=== PATIENT | male | born 1940 | race Caucasian/White ===

== ENCOUNTER 2017-12-13 12:08 | Inpatient (IN) | payer OTHER ==
[~2017-12-13] VITALS: Ht 182.9 cm; Wt 142.9 kg
[2017-12-13 12:42] LABS: BASO % 1 % (0-3); EOS # 0.2 x10^3/uL (0.0-0.7); EOS % 2 % (0-3); HEMATOCRIT 40.9 % (39.0-53.0); HEMOGLOBIN 14.1 g/dL (13.0-17.5); LYMPH # 2.1 x10^3/uL (1.0-4.8); LYMPH % 31 % (24-48); MEAN CORPUSCULAR HEMOGLOBIN 33 pg (25-35); MEAN CORPUSCULAR HGB CONC 35 g/dL (31-37); MEAN CORPUSCULAR VOLUME 94 fL (79-100); MONO # 0.8 x10^3/uL (0.0-1.1); MONO % 11 % (0-9); NEUT # 3.7 x10^3uL (1.8-7.7); NEUT % 54 % (31-73); PLATELET COUNT 212 x10^3/uL (140-400); RED BLOOD COUNT 4.33 x10^6/uL (4.30-5.70); WHITE BLOOD COUNT 6.9 x10^3/uL (4.0-11.0)
--- NOTE | 2017-12-13 12:46 | RAD ---
EXAM: Chest, 2 views. HISTORY: Shortness of breath. COMPARISON: None. FINDINGS: 2 views of the chest are obtained. There is no infiltrate, pleural effusion or pneumothorax. There is a prominent cardiac silhouette. There is evidence of prior median sternotomy. IMPRESSION: No acute pulmonary finding. Electronically signed by: Viry Zuniga MD (12/13/2017 12:43 PM) [place] [id number]
[2017-12-13 13:02] LABS: ALBUMIN 3.8 g/dL (3.4-5.0); CREATININE 1.1 mg/dL (0.7-1.3); GFR 64.6; MAGNESIUM 2.3 mg/dL (1.8-2.4); TOTAL BILIRUBIN 0.6 mg/dL (0.2-1.0); TOTAL PROTEIN 7.7 g/dL (6.4-8.2)
--- NOTE | 2017-12-13 13:36 | RAD ---
EXAM: Right lower extremity venous Doppler sonogram. HISTORY: Pain and swelling. TECHNIQUE: Nascimento scale and color Doppler sonographic evaluation of the right lower extremity veins with spectral waveform analysis was performed. FINDINGS: There is normal color flow, normal compressibility and there are normal spectral waveforms in the right lower extremity veins. There is no fluid collection underlying a wound along the anterior feliz. There is soft tissue edema. IMPRESSION: No Doppler evidence of lower extremity venous thrombosis. Electronically signed by: Viry Zuniga MD (12/13/2017 1:32 PM) [place] [id number]
[2017-12-13] MEDS ORDERED: dilTIAZem 25 MG/5 ML VIAL IVP ONE (13:45)
[2017-12-13 13:51] LABS: AMPHETAMINE/METHAMPHETAMINE NEG (NEG); BARBITURATES NEG (NEG); BENZODIAZEPINES NEG (NEG); CANNABINOIDS NEG (NEG); COCAINE NEG (NEG); METHADONE NEG (NEG); OPIATES NEG (NEG); PHENCYCLIDINE NEG (NEG)
[2017-12-13] MEDS ORDERED: IV NORMAL SALINE 50ML 50 ML ONE (13:52)
[2017-12-13] MEDS ORDERED: ceFAZolin SODIUM 1 GM VIAL ONE (13:53)
--- NOTE | 2017-12-13 14:00 | EKG ---
[address] [address] Test Date: 2017-12-13 Test Time: 12:23:00 Pat Name: ALLEN CRAWFORD Department: Room: Gender: M Registration Specialist: : 1940 Requested By: NESHA GONSALES Order Number: [id number] Reading MD: Cisco Ponce MD Measurements Intervals [place] Rate: 64 P: [place]: QRS: -54 QRSD: 138 T: 31 QT: 430 QTc: 448 Interpretive Statements PROBABLE ATRIAL FIBRILLATION WITH CONTROLLED RESPONSE. OLD INFERIOR INFARCT POSSIBLE RBBB PVC Electronically Signed On 12-13-2017 16:29:33 CDT by Cisco Ponce MD
--- NOTE | 2017-12-13 14:08 | PHYS DOC ---
Past History Past Medical History: A-Fib, CHF, COPD, Hypertension Past Surgical History: Coronary Bypass Surgery Alcohol Use: None Drug Use: None Adult General Chief Complaint Chief Complaint: SHORTNESS OF BREATH HPI HPI Patient is a 77 year old male who presents with complaining of shortness of breath. Patient was seen by his primary care physician today for the first time with complaining of increasing chronic shortness of breath for the last month with exertion and supine position and bilateral lower extremity edema. Patient complaining of right lower extremity injury and increasing edema and an ulcer that does not getting better for the last 2 weeks. Patient also states he had one episode of chest pain 2 days ago that resolved with taking nitroglycerin. Patient complaining of productive cough with clear sputum and nasal congestion for several days. Patient denies dizziness, focal neuro deficit, fever and chills, nausea and vomiting. Patient has history of CHF, coronary artery disease and CABG in 1998 and cardiac catheter 2 years ago, insulin-dependent diabetes mellitus and former smoking. Patient was incarcerated for 20 years and is in retirement house for the last 2 -3 weeks. Patient had EKG by primary care physician office that showed new onset of atrial fibrillation without RVR. Review of Systems Review of Systems Constitutional: Denies fever or chills [] Eyes: Denies change in visual acuity, redness, or eye pain [] HENT: Reports nasal congestion Respiratory: Reports cough and shortness of breath[] Cardiovascular: No additional information not addressed in HPI [] GI: Denies abdominal pain, nausea, vomiting, bloody stools or diarrhea [] : Denies dysuria or hematuria [] Musculoskeletal: Denies back pain or joint pain [] Integument: Denies rash or skin lesions [] Neurologic: Denies headache, focal weakness or sensory changes [] Endocrine: Denies polyuria or polydipsia [] All other systems were reviewed and found to be within normal limits, except as documented in this note. Current Medications Current Medications Current Medications Medications (Trade) Dose Ordered Sig/Jada Start Time Stop Time Status Last Admin Dose Admin Cefazolin Sodium 1 gm/Sodium Chloride 50 ml @ 100 mls/hr 1X ONCE 12/13/17 13:45 12/13/17 14:14 UNV Diltiazem HCl (Cardizem) 20 mg 1X ONCE 12/13/17 13:45 12/13/17 13:46 12/13/17 13:41 20 MG Furosemide (Lasix) 40 mg 1X ONCE 12/13/17 13:45 12/13/17 13:46 UNV Allergies Allergies Allergies Coded Allergies Type Severity Reaction Last Updated Verified Penicillins Allergy Intermediate 12/13/17 Yes Physical Exam Physical Exam Constitutional: Well developed, well nourished, mild distress, non-toxic appearance. [] HENT: Normocephalic, atraumatic, bilateral external ears normal, oropharynx moist, no oral exudates, nose normal. [] Eyes: PERRLA, EOMI, conjunctiva normal, no discharge. [] Neck: Normal range of motion, no tenderness, supple, no stridor. [] Cardiovascular: Irregularly irregular, no murmur [] Lungs & Thorax: No respiratory distress, bilateral basilar rhonchi and decrease of air movement [] Abdomen: Bowel sounds normal, soft, no tenderness, no masses, no pulsatile masses. [] Skin: Warm, dry, no erythema, no rash. [] Back: No tenderness, no CVA tenderness. [] Extremities: Bilateral lower extremity edema more in right side with 2 x 2 centimeter ulcer in anterior right leg and erythema without sign of abscess Neurologic: Alert and oriented X 3, normal motor function, normal sensory function, no focal deficits noted. [] Psychologic: Affect normal, judgement normal, mood normal. [] Current Patient Data Vital Signs Vital Signs Date Time Temp Pulse Resp B/P (MAP) Pulse Ox O2 Delivery O2 Flow Rate FiO2 12/13/17 13:41 70 158/114 12/13/17 12:29 97.7 20 100 Room Air Lab Results Laboratory Tests Test 12/13/17 12:26 White Blood Count 6.9 x10^3/uL (4.0-11.0) Red Blood Count 4.33 x10^6/uL (4.30-5.70) Hemoglobin 14.1 g/dL (13.0-17.5) Hematocrit 40.9 % (39.0-53.0) Mean Corpuscular Volume 94 fL (79-100) Mean Corpuscular Hemoglobin 33 pg (25-35) Mean Corpuscular Hemoglobin Concent 35 g/dL (31-37) Red Cell Distribution Width 13.0 % (11.5-14.5) Platelet Count 212 x10^3/uL (140-400) Neutrophils (%) (Auto) 54 % (31-73) Lymphocytes (%) (Auto) 31 % (24-48) Monocytes (%) (Auto) 11 % (0-9) H Eosinophils (%) (Auto) 2 % (0-3) Basophils (%) (Auto) 1 % (0-3) Neutrophils # (Auto) 3.7 x10^3uL (1.8-7.7) Lymphocytes # (Auto) 2.1 x10^3/uL (1.0-4.8) Monocytes # (Auto) 0.8 x10^3/uL (0.0-1.1) Eosinophils # (Auto) 0.2 x10^3/uL (0.0-0.7) Basophils # (Auto) 0.0 x10^3/uL (0.0-0.2) Prothrombin Time 11.3 SEC (9.4-11.4) Prothrombin Time INR 1.1 (0.9-1.1) PTT 24 SEC (23-33) D-Dimer (Paula) 0.59 mg/L (0.00-0.50) H Sodium Level 141 mmol/L (136-145) Potassium Level 4.0 mmol/L (3.5-5.1) Chloride Level 102 mmol/L (98-107) Carbon Dioxide Level 32 mmol/L (21-32) Anion Gap 7 (6-14) Blood Urea Nitrogen 22 mg/dL (8-26) Creatinine 1.1 mg/dL (0.7-1.3) Estimated GFR (Cockcroft-Gault) 64.6 BUN/Creatinine Ratio 20 (6-20) Glucose Level 89 mg/dL (70-99) Calcium Level 9.0 mg/dL (8.5-10.1) Magnesium Level 2.3 mg/dL (1.8-2.4) Total Bilirubin 0.6 mg/dL (0.2-1.0) Aspartate Amino Transferase (AST) 16 U/L (15-37) Alanine Aminotransferase (ALT) 23 U/L (16-63) Alkaline Phosphatase 74 U/L (46-116) Creatine Kinase 140 U/L (39-308) Troponin I Quantitative < 0.017 ng/mL (0-0.055) AE-Vqt-Y-Type Natriuretic Peptide 1311 pg/mL (0-449) H Total Protein 7.7 g/dL (6.4-8.2) Albumin 3.8 g/dL (3.4-5.0) Albumin/Globulin Ratio 1.0 (1.0-1.7) Lipase 357 U/L (73-393) EKG EKG EKG interpreted by me. EKG at 1229 showed atrial fibrillation at rate of 64 with frequent PVC, abnormal left axis deviation, left anterior fascicular block , right bundle branch block, bifascicular block, no acute ST and T-wave abnormalities[] Radiology/Procedures Radiology/Procedures [address] [address] IMAGING REPORT Signed PATIENT: ALLEN CRAWFORD ACCOUNT: [id number] : 1940 LOCATION: ER AGE: 77 SEX: M EXAM STATUS: REG ER ORD. PHYSICIAN: NESHA GONSALES MD REASON: edema and injury PROCEDURE: VENOUS LOWER EXTREMITY RIGHT EXAM: Right lower extremity venous Doppler sonogram. HISTORY: Pain and swelling. TECHNIQUE: Nascimento scale and color Doppler sonographic evaluation of the right lower extremity veins with spectral waveform analysis was performed. FINDINGS: There is normal color flow, normal compressibility and there are normal spectral waveforms in the right lower extremity veins. There is no fluid collection underlying a wound along the anterior feliz. There is soft tissue edema. IMPRESSION: No Doppler evidence of lower extremity venous thrombosis. Electronically signed by: Viry Welch MD (12/13/2017 1:32 PM) [place] [id number] DICTATED AND SIGNED BY: VIRY WELCH MD DATE: 12/13/17 1333 CC: NESHA GONSALES MD; CHLOE ESPINOZA DO ~ [address] [address] IMAGING REPORT Signed PATIENT: ALLEN CRAWFORD ACCOUNT: [id number] : 1940 LOCATION: ER AGE: 77 SEX: M EXAM STATUS: REG ER ORD. PHYSICIAN: NESHA GONSALES MD REASON: shortness of breath PROCEDURE: CHEST PA & LATERAL EXAM: Chest, 2 views. HISTORY: Shortness of breath. COMPARISON: None. FINDINGS: 2 views of the chest are obtained. There is no infiltrate, pleural effusion or pneumothorax. There is a prominent cardiac silhouette. There is evidence of prior median sternotomy. IMPRESSION: No acute pulmonary finding. Electronically signed by: Viry Welch MD (12/13/2017 12:43 PM) [place] [id number] DICTATED AND SIGNED BY: VIRY WELCH MD DATE: 12/13/17 1242 CC: NESHA GONSALES MD; CHLOE ESPINOZA DO ~ Course & Med Decision Making Course & Med Decision Making Pertinent Labs and Imaging studies reviewed. (See chart for details) Evaluation of patient in ER showed 77-year-old male patient sent from primary care physician office because of new onset of A. fib and lower extremity cellulitis and CHF. Patient did not have DVT. Labs showed elevation of BNP with unremarkable chest x-ray and EKG showed atrial fibrillation without RVR. She treated with 20 mg of Cardizem with drop of heart rate to 45s without change of atrial fibrillation. Patient had treatment with Ancef and Lasix and on-call hospitalist Dr. Cohn accepted admission at 1338. Dragon Disclaimer Dragon Disclaimer This electronic medical record was generated, in whole or in part, using a voice recognition dictation system. Departure Departure: Impression: Primary Impression: New onset atrial fibrillation Additional Impressions: Cellulitis of right lower extremity CHF (congestive heart failure) Diabetes mellitus Morbid obesity Disposition: 09 ADMITTED INPATIENT (@1340) Admitting Physician: Radha Cohn (accepted admission at 1338) Condition: IMPROVED Referrals: CHLOE ESPINOZA DO (PCP) Problem Qualifiers NESHA GONSALES MD Dec 13, 2017 14:08
[2017-12-13] MEDS ORDERED: FUROSEMIDE 40 MG/4 ML VIAL IVP ONE (14:15)
[2017-12-13 14:48] VITALS: BP 156/71
[2017-12-13] MEDS ORDERED: FURO40TA4 PO (15:57)
[2017-12-13] MEDS ORDERED: LISI40TA PO (15:57)
[2017-12-13] MEDS ORDERED: INSU100V31 SQ (15:57)
[2017-12-13] MEDS ORDERED: ASPI-630 PO (15:57)
[2017-12-13] MEDS ORDERED: RANI150T2 PO (15:57)
[2017-12-13] MEDS ORDERED: ATORVASTATIN CA80 MG PO (15:57)
[2017-12-13] MEDS ORDERED: MECL25TA3 PO (15:57)
[2017-12-13] MEDS ORDERED: METO50TA6 PO (15:57)
[2017-12-13] MEDS ORDERED: NEOM10DR32 EACH EAR (15:57)
[2017-12-13] MEDS ORDERED: ACET325T9 PO (15:57)
[2017-12-13] MEDS ORDERED: NITR0.4T22 SL (15:57)
[2017-12-13] MEDS ORDERED: ISOS30TA4 PO (15:57)
[2017-12-13] MEDS ORDERED: DOCU100C28 PO (15:57)
[2017-12-13] MEDS ORDERED: CARB15DR58 OT (15:57)
[2017-12-13] MEDS ORDERED: INSU100I13 SQ (15:57)
[2017-12-13] MEDS ORDERED: CALC-157 PO (15:57)
[2017-12-13] MEDS ORDERED: MOME13HF IH (15:57)
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
[2017-12-13] MEDS ORDERED: MECLIZINE 12.5 MG TABLET. PO PRN (18:30)
[2017-12-13] MEDS ORDERED: NITROGLYCERIN SUBLINGUAL 0.4 MG BOTTLE OF 25. SL PRN (18:30)
[2017-12-13 18:47] VITALS: BP 161/75
[2017-12-13] MEDS: VANCOMYCIN PER PHARMACY MC PRN (19:13)
[2017-12-13] MEDS ORDERED: NON FORMULARY ITEM (Mometasone/Formoterol (Dulera 200 Mcg/5 Mcg Inhaler) 2 PUFF) IH SCH (21:00)
[2017-12-13] MEDS: ALBUTEROL SULFATE 2.5 MG/3 ML NEBU. NEB SCH (21:11)
[2017-12-13] MEDS: BUDESONIDE 0.5 MG/2 ML NEBU NEB SCH (21:11)
[2017-12-13] MEDS: VANCOMYCIN 2 GM in IV NORMAL SALINE 500ML 500 ML IV SCH (21:36)
[2017-12-13] MEDS: CARBAMIDE PEROXIDE 6.5% OTIC SOLUTION 15ML BOTTLE. AU SCH (21:36)
[2017-12-13] MEDS: APIXABAN 5 MG TABLET. PO SCH (21:37)
[2017-12-13] MEDS: NEOMYCIN/POLYMYXIN/HC OTIC SUSPENSION 10ML BOTTLE. AU SCH (21:37)
[2017-12-13] MEDS: FAMOTIDINE 20 MG TABLET PO SCH (21:38)
[2017-12-13] MEDS: DOCUSATE SODIUM 100 MG CAPSULE PO SCH (21:39)
[2017-12-13 23:03] VITALS: BP 164/75
[2017-12-14 04:17] VITALS: BP 161/78
[2017-12-14] MEDS: ACETAMINOPHEN 325 MG TABLET PO PRN ×2 (04:39→20:10)
[2017-12-14] MEDS: ALBUTEROL SULFATE 2.5 MG/3 ML NEBU. NEB SCH ×4 (05:36→21:04)
[2017-12-14 06:06] LABS: CALCIUM 8.9 mg/dL (8.5-10.1); CREATININE 1.2 mg/dL (0.7-1.3); GFR 58.4; POTASSIUM 4.1 mmol/L (3.5-5.1)
--- NOTE | 2017-12-14 06:19 | PDOC ---
PROVIDER NOTE PROVIDER NOTE PROVIDER NOTE Full note dictated. 77 y.o male with mild diastolic HF. New onset afib start eliquis. rate controlled will have sw evaluate insurance status. patient moving to [place] probably in 1-2 weeks obtain echo DARRYN TOLEDO MD Dec 14, 2017 06:19
[2017-12-14] MEDS: CALCIUM CARB/VIT D3 500/200 TABLET PO SCH (08:38)
[2017-12-14] MEDS: LISINOPRIL 20 MG TABLET PO SCH (08:38)
[2017-12-14] MEDS: VANCOMYCIN 2 GM in IV NORMAL SALINE 500ML 500 ML IV SCH ×2 (08:38→19:56)
[2017-12-14] MEDS: ATORVASTATIN CALCIUM 20 MG TABLET PO SCH (08:38)
[2017-12-14] MEDS: APIXABAN 5 MG TABLET. PO SCH ×2 (08:42→21:25)
[2017-12-14] MEDS: DOCUSATE SODIUM 100 MG CAPSULE PO SCH ×2 (08:42→21:24)
[2017-12-14] MEDS: ASPIRIN 81 MG TAB.CHEW PO SCH (08:42)
[2017-12-14] MEDS: FAMOTIDINE 20 MG TABLET PO SCH ×2 (08:43→21:25)
[2017-12-14] MEDS: CETIRIZINE HCL 10 MG TABLET PO SCH (08:43)
[2017-12-14] MEDS: NEOMYCIN/POLYMYXIN/HC OTIC SUSPENSION 10ML BOTTLE. AU SCH ×3 (08:43→21:26)
[2017-12-14] MEDS: FLUTICASONE 50MCG/NASAL SPRAY 16GM BOTTLE. NS SCH (08:47)
[2017-12-14] MEDS: FUROSEMIDE 40 MG TABLET PO SCH (08:47)
[2017-12-14] MEDS: CARBAMIDE PEROXIDE 6.5% OTIC SOLUTION 15ML BOTTLE. AU SCH ×2 (08:48→21:26)
[2017-12-14] MEDS: ISOSORBIDE MONONITRATE ER 30 MG TAB.ER.24H PO SCH (08:53)
[2017-12-14] MEDS: INSULIN LISPRO 300 UNITS/3 ML INSULN.PEN. SQ SCH (09:00)
[2017-12-14] MEDS: INSULIN GLARGINE 300 UNITS/3 ML INSULN.PEN. SQ SCH (09:00)
[2017-12-14] MEDS: LACTOBACILLUS RHAMNOSUS GG 1 CAPSULE. PO SCH ×2 (09:00→21:25)
[2017-12-14] MEDS: BUDESONIDE 0.5 MG/2 ML NEBU NEB SCH ×2 (09:29→21:04)
--- NOTE | 2017-12-14 10:06 | PDOC ---
PROGRESS NOTES Diagnosis Problem Problems Medical Problems: (1) Cellulitis of right lower extremity Status: Acute (2) CHF (congestive heart failure) Status: Acute (3) Diabetes mellitus Status: Acute (4) Morbid obesity Status: Acute (5) New onset atrial fibrillation Status: Acute Assessment Problems Medical Problems: (1) Cellulitis of right lower extremity Status: Acute (2) CHF (congestive heart failure) Status: Acute (3) Diabetes mellitus Status: Acute (4) Morbid obesity Status: Acute (5) New onset atrial fibrillation Status: Acute 1. Chest pain - UT ruled out. echo pending. review most recent cath report. could consider outpatient MPI pending record review. Continue aspirin, statin, nitrate. No beta marisa due to borderline bradycardia. 2. mild presumed chronic diastolic heart failure - clinically compensated currently. CXR without pulmonary congestion. continue medical mgmt. 3. new onset atrial fibrillation - on anticoag, rate controlled without BB or CCB 4. CAD/CABG status - request records of cardiac cath within last 2 years 5. hypertension - add hydralazine 6. hyperlipidemia - check lipids, continue statin Subjective feeling better. no dyspnea, chest pain, palpitations or lightheadedness. Objective Vital Signs Date Time Temp Pulse Resp B/P (MAP) Pulse Ox O2 Delivery O2 Flow Rate FiO2 12/14/17 09:30 95 Room Air 12/14/17 08:53 62 161/78 12/14/17 04:17 97.7 20 Intake and Output 12/14/17 07:00 Intake Total 1500 ml Output Total 825 ml Balance 675 ml Intake Oral 1000 ml IV Total 500 ml Output Urine Total 825 ml # Voids 1 Abdomen: Normal bowel sounds, Soft Heart: Normal S1, Normal S2, Other (no gallops, clicks or rubs) Extremities: Other (+ bilateral lower extremity edema) General: Alert, Oriented X3, Cooperative, No acute distress Lungs: Other (decreased bases otherwise clear) Neuro: Normal speech, Strength at 5/5 X4 ext Psych/Mental Status: Mental status NL, Mood NL Review of Relevant I have reviewed the following items catalina (where applicable) has been applied. Labs Laboratory Tests Test 12/13/17 12:26 12/13/17 13:33 12/13/17 16:22 12/13/17 17:07 White Blood Count 6.9 x10^3/uL (4.0-11.0) Red Blood Count 4.33 x10^6/uL (4.30-5.70) Hemoglobin 14.1 g/dL (13.0-17.5) Hematocrit 40.9 % (39.0-53.0) Mean Corpuscular Volume 94 fL (79-100) Mean Corpuscular Hemoglobin 33 pg (25-35) Mean Corpuscular Hemoglobin Concent 35 g/dL (31-37) Red Cell Distribution Width 13.0 % (11.5-14.5) Platelet Count 212 x10^3/uL (140-400) Neutrophils (%) (Auto) 54 % (31-73) Lymphocytes (%) (Auto) 31 % (24-48) Monocytes (%) (Auto) 11 % (0-9) Eosinophils (%) (Auto) 2 % (0-3) Basophils (%) (Auto) 1 % (0-3) Neutrophils # (Auto) 3.7 x10^3uL (1.8-7.7) Lymphocytes # (Auto) 2.1 x10^3/uL (1.0-4.8) Monocytes # (Auto) 0.8 x10^3/uL (0.0-1.1) Eosinophils # (Auto) 0.2 x10^3/uL (0.0-0.7) Basophils # (Auto) 0.0 x10^3/uL (0.0-0.2) Prothrombin Time 11.3 SEC (9.4-11.4) Prothromb Time International Ratio 1.1 (0.9-1.1) Activated Partial Thromboplast Time 24 SEC (23-33) D-Dimer (Paula) 0.59 mg/L (0.00-0.50) Sodium Level 141 mmol/L (136-145) Potassium Level 4.0 mmol/L (3.5-5.1) Chloride Level 102 mmol/L (98-107) Carbon Dioxide Level 32 mmol/L (21-32) Anion Gap 7 (6-14) Blood Urea Nitrogen 22 mg/dL (8-26) Creatinine 1.1 mg/dL (0.7-1.3) Estimated GFR (Cockcroft-Gault) 64.6 BUN/Creatinine Ratio 20 (6-20) Glucose Level 89 mg/dL (70-99) Calcium Level 9.0 mg/dL (8.5-10.1) Magnesium Level 2.3 mg/dL (1.8-2.4) Total Bilirubin 0.6 mg/dL (0.2-1.0) Aspartate Amino Transf (AST/SGOT) 16 U/L (15-37) Alanine Aminotransferase (ALT/SGPT) 23 U/L (16-63) Alkaline Phosphatase 74 U/L (46-116) Creatine Kinase 140 U/L (39-308) Troponin I Quantitative < 0.017 ng/mL (0-0.055) < 0.017 ng/mL (0-0.055) MV-Dmw-V-Type Natriuretic Peptide 1311 pg/mL (0-449) Total Protein 7.7 g/dL (6.4-8.2) Albumin 3.8 g/dL (3.4-5.0) Albumin/Globulin Ratio 1.0 (1.0-1.7) Lipase 357 U/L (73-393) Urine Opiates Screen Neg (NEG) Urine Methadone Screen Neg (NEG) Urine Barbiturates Neg (NEG) Urine Phencyclidine Screen Neg (NEG) Urine Amphetamine/Methamphetamine Neg (NEG) Urine Benzodiazepines Screen Neg (NEG) Urine Cocaine Screen Neg (NEG) Urine Cannabinoids Screen Neg (NEG) Urine Ethyl Alcohol Neg (NEG) Glucose (Fingerstick) 116 mg/dL (70-99) Test 12/13/17 20:23 12/13/17 20:54 12/14/17 05:31 12/14/17 07:17 Glucose (Fingerstick) 153 mg/dL (70-99) 169 mg/dL (70-99) Troponin I Quantitative < 0.017 ng/mL (0-0.055) Sodium Level 137 mmol/L (136-145) Potassium Level 4.1 mmol/L (3.5-5.1) Chloride Level 99 mmol/L (98-107) Carbon Dioxide Level 28 mmol/L (21-32) Anion Gap 10 (6-14) Blood Urea Nitrogen 20 mg/dL (8-26) Creatinine 1.2 mg/dL (0.7-1.3) Estimated GFR (Cockcroft-Gault) 58.4 Glucose Level 173 mg/dL (70-99) Calcium Level 8.9 mg/dL (8.5-10.1) Medications Current Medications Diltiazem HCl (Cardizem) 20 mg 1X ONCE IVP Last administered on 12/13/17at 13: 41; Start 12/13/17 at 13:45; Stop 12/13/17 at 13:46; Status DC Cefazolin Sodium 1 gm/Sodium Chloride 50 ml @ 100 mls/hr 1X ONCE IV Last administered on 12/13/17at 13:56; Start 12/13/17 at 14:15; Stop 12/13/17 at 14 :44; Status DC Furosemide (Lasix) 40 mg 1X ONCE IVP Last administered on 12/13/17at 13:56; Start 12/13/17 at 14:15; Stop 12/13/17 at 14:16; Status DC Sodium Chloride 50 ml @ As Directed STK-MED ONCE .ROUTE ; Start 12/13/17 at 13: 52; Stop 12/13/17 at 13:53; Status DC Cefazolin Sodium (Ancef) 1 gm STK-MED ONCE .ROUTE ; Start 12/13/17 at 13:53; Stop 12/13/17 at 13:54; Status DC Cetirizine HCl (ZyrTEC) 10 mg DAILY PO Last administered on 12/14/17at 08:43; Start 12/14/17 at 09:00 Fluticasone Propionate (Flonase) 2 spray DAILY NS Last administered on at 08:47; Start 12/14/17 at 09:00 Influenza Virus Vaccine (Afluria Trivalent [id number] Syringe) 0.5 ml ONCE ONCE VAX IM Last administered on 12/14/17at 08:56; Start 12/14/17 at 09:00; Stop 12/14/17 at 09:01; Status DC Apixaban (Eliquis) 5 mg BID PO Last administered on 12/14/17 08:42; Start at 21:00 Acetaminophen (Tylenol) 650 mg PRN QID PRN PO PAIN Last administered on at 04:39; Start 12/13/17 at 18:15 Calcium/Vitamin D (Oscal D 500mg/ 200uts) 1 tab DAILY PO Last administered on 12/14/17at 08:38; Start 12/14/17 at 09:00 Insulin Glargine (Lantus) 15 units DAILY SQ Last administered on 12/14/17at 09: 00; Start 12/14/17 at 09:00 Isosorbide Mononitrate (Imdur) 30 mg DAILY PO Last administered on 12/14/17at 08:53; Start 12/14/17 at 09:00 Nitroglycerin (Nitrostat) 0.4 mg PRN Q5MIN PRN SL CHEST PAIN; Start 12/13/17 at 18:30 Aspirin (Children'S Aspirin) 81 mg DAILYWBKFT PO Last administered on 08:42; Start 12/14/17 at 08:00 Atorvastatin Calcium (Lipitor) 80 mg DAILY PO Last administered on 12/14/17 08:38; Start 12/14/17 at 09:00 Docusate Sodium (Colace) 100 mg BID PO Last administered on 12/14/17 08:42; Start 12/13/17 at 21:00 Furosemide (Lasix) 40 mg DAILY PO Last administered on 12/14/17 08:47; Start 12/14/17 at 09:00 Insulin Human Lispro (HumaLOG) 5 units DAILYWBKFT SQ Last administered on 12/14 09:00; Start 12/14/17 at 08:00 Lisinopril (Prinivil) 40 mg DAILY PO Last administered on 12/14/17 08:38; Start 12/14/17 at 09:00 Meclizine HCl (Antivert) 25 mg PRN BID PRN PO DIZZINESS; Start 12/13/17 at 18: 30 Non-Formulary Medication (Mometasone/ Formoterol (Dulera 200 Mcg/5 Mcg Inhaler) ) 2 puff BID IH ; Start 12/13/17 at 21:00; Status UNV Neomycin/ Polymyxin/ Hydrocortisone (Cortisporin Otic) 4 drop TID AU Last administered on 12/14/17 08:43; Start 12/13/17 at 21:00 Famotidine (Pepcid) 20 mg BID PO Last administered on 12/14/17 08:43; Start 12/13/17 at 21:00 Carbamide Peroxide (Debrox) 5 drop BID AU Last administered on 12/14/17 08:48 ; Start 12/13/17 at 21:00 Vancomycin HCl (Vanco Per Pharmacy) 1 each PRN DAILY PRN MC SEE COMMENTS Last administered on 12/13/17at 19:13; Start 12/13/17 at 18:15 Albuterol Sulfate (Ventolin) 2.5 mg RTQID NEB Last administered on 12/14/17at 09:29; Start 12/13/17 at 20:00 Budesonide (Pulmicort) 0.5 mg RTBID NEB Last administered on 12/14/17at 09:29; Start 12/13/17 at 20:00 Vancomycin HCl 2 gm/Sodium Chloride 500 ml @ 250 mls/hr Q12H IV Last administered on 12/14/17at 08:38; Start 12/13/17 at 20:00 Vancomycin HCl (Vancomycin Trough Level) 1 each 1X ONCE MC ; Start 12/15/17 at 07:30; Stop 12/15/17 at 07:31 Lactobacillus Rhamnosus (Culturelle) 1 cap BID PO ; Start 12/14/17 at 09:00 Active Scripts Active Reported Novolog (Insulin Aspart) 100 Unit/1 Ml Vial 5 Unit SQ DAILY Lantus Solostar (Insulin Glargine,Hum.rec.anlog) 100 Unit/1 Ml Insuln.pen 15 Unit SQ DAILY Ranitidine Hcl 150 Mg Tablet 1 Tab PO BID NITROGLYCERIN SubLingual (Nitroglycerin) 0.4 Mg Tab.subl 1 Tab SL UD Aatwmpou-Guocxashw-Hg Ear Susp (Neomycin/Polymyxin B Sulf/Hc) 10 Ml Drops.susp 4 Drop EACH EAR TID Dulera 200 Mcg/5 Mcg Inhaler (Mometasone/Formoterol) 13 Gm Hfa.aer.ad 2 Puff IH BID Metoprolol Tartrate 50 Mg Tablet 1 Tab PO BID Meclizine Hcl 25 Mg Tablet 25 Mg PO BID PRN Lisinopril 40 Mg Tablet 1 Tab PO DAILY Isosorbide Mononitrate Er (Isosorbide Mononitrate) 30 Mg Tab.er.24h 1 Tab PO DAILY Furosemide 40 Mg Tablet 1 Tab PO DAILY Docusate Sodium 100 Mg Capsule 1 Cap PO BID Carbamide Peroxide 15 Ml Drops 15 Ml OT Calcium 500 + Vit D 200 Tablet (Calcium Carbonate/Vitamin D3) 1 Each Tablet 1 Each PO DAILY Atorvastatin Calcium 80 Mg Tablet 1 Tab PO DAILY Aspirin 81 Mg Tab.chew 81 Mg PO DAILY Tylenol (Acetaminophen) 325 Mg Tablet 1-2 Tab PO QID Vitals/I & O Vital Sign - Last 24 Hours 12/13/17 12/13/17 12/13/17 12/13/17 12:29 13:41 13:44 14:19 Temp 97.7 Pulse 70 70 67 50 Resp 20 20 20 B/P (MAP) 158/114 158/114 (129) 143/57 (85) Pulse Ox 100 100 95 O2 Delivery Room Air Room Air Room Air 12/13/17 12/13/17 12/13/17 12/13/17 14:48 18:47 20:00 21:12 Temp 97.3 97.8 Pulse 53 62 Resp 22 20 B/P (MAP) 156/71 (99) 161/75 (103) Pulse Ox 96 95 95 O2 Delivery Room Air Room Air Room Air Room Air 12/13/17 12/13/17 12/14/17 12/14/17 21:16 23:03 04:17 05:36 Temp 98.1 97.7 Pulse 75 62 Resp 20 20 B/P (MAP) 164/75 (104) 161/78 (105) Pulse Ox 95 95 94 95 O2 Delivery Room Air Room Air Room Air Room Air 12/14/17 12/14/17 12/14/17 12/14/17 08:30 08:38 08:53 09:30 Pulse 62 62 B/P (MAP) 161/78 161/78 Pulse Ox 95 O2 Delivery Room Air Room Air Intake and Output 12/13/17 12/13/17 12/14/17 15:00 23:00 07:00 Intake Total 400 ml 1100 ml Output Total 200 ml 625 ml Balance 200 ml 475 ml ARNIE CHAPMAN APRN Dec 14, 2017 10:06
[2017-12-14 11:16] VITALS: BP 121/69
--- NOTE | 2017-12-14 12:41 | CONS ---
DATE OF CONSULTATION: 12/13/2017 REASON FOR CONSULTATION: Heart failure. HISTORY OF PRESENT ILLNESS: The patient is a 77-year-old male who presented to the ER with chest pain that started 3 weeks ago. He was moved from [facility] to a [facility] house, has been feeling worse since then. States he has been taking his medication, has not been staying with his diet during that time. Over this time, he has felt this kind of increasing pressure, has had paroxysmal nocturnal dyspnea, has had dyspnea on exertion, has had wheezing, has had increased swelling during this time as well. Other review of systems is negative. MEDICATIONS: See MAR PAST MEDICAL HISTORY: Hypertension, insulin-dependent diabetes mellitus, hyperlipidemia. PAST SURGICAL HISTORY: He has had a quadruple bypass in 1998, had a PCI in 2007. He has had 2 decompensated heart failure since 2007. FAMILY HISTORY: Mother of myocardial infarction. Brother and sister have also had heart issues. PHYSICAL EXAMINATION: VITAL SIGNS: Blood pressure has been in the 140s and 150s, heart rate was in the 60s, which then went to the 40s-50s after receiving carvedilol in the Emergency Room. CARDIOVASCULAR: Irregularly irregular heart rate. RESPIRATORY: Has had wheezing on lung exam. EXTREMITIES: +2 lower extremity edema. Has an area of erythema on the right lower extremity. GENERAL: Morbidly obese male sitting upright in bed with no acute distress. LABORATORY DATA: CBC normal. CMP normal. EKG, old inferior infarct, atrial fibrillation, PVCs, right bundle-branch block. ASSESSMENT: 1. Acute decompensated heart failure secondary to diet noncompliance. Begin Lasix 40 mg IV, reassess CMP, fluid status tomorrow. We will need to optimize his heart failure medications. 2. Atrial fibrillation. We will begin blood thinner with Eliquis or Xarelto depending on what his insurance will cover. DARRYN TOLEDO MD DR: CINTHYA/negrita JOB#: [id number] / [id number] MTDD
[2017-12-14 15:41] VITALS: BP 143/72
--- NOTE | 2017-12-14 16:29 | CARD ---
MR#: [id number] Date of Study: 12/14/2017 Ordering Physician: DARRYN TOLEDO, Referring Physician: OLY TAMEZ, Tech: Bella Demarco APPROVED REPORT EXAM: Two-dimensional and M-mode echocardiogram with Doppler and color Doppler. Other Information Quality : FairHR: 73bpm Rhythm : PVC's INDICATION Chest Pain RISK FACTORS Hypertension Hyperlipidemia Diabetes 2D DIMENSIONS Left Atrium(2D)5.2 (1.6-4.0cm)IVSd1.2 (0.7-1.1cm) Aortic Root(2D)3.1 (2.0-3.7cm)LVDd6.0 (3.9-5.9cm) LVOT Diameter2.3 (1.8-2.4cm)PWd1.6 (0.7-1.1cm) LVDs4.2 (2.5-4.0cm)FS (%) 30.7 % SV103.0 mlLVEF(%)57.4 (>50%) Aortic Valve AoV Peak Gerardo.175.2cm/sAoV VTI33.1cm AO Peak GR.12.3mmHgLVOT Peak Gerardo.95.7cm/s LVOT VTI 19.15cmAO Mean GR.8mmHg CULLEN (VMAX)2.42vi2WAA (VTI)2.50cm2 Mitral Valve MV E Fgtcgrdq522.6cm/sMV DECEL [id number] MV A Dfteixyt27.2cm/sE/A Ratio2.9 Pulmonary Valve PV Peak Zdvmalyq51.3cm/sPV Peak Grad.4mmHg Tricuspid Valve TR P. Gausatrv596xt/sRAP OKBOSKEL31ycLb TR Peak Gr.43ajDqYIBG97dgDa Pulmonary Vein S1 Kfzfsztj48.3cm/sD2 Feqvions53.1cm/s LEFT VENTRICLE The Left Ventricle is mildly dilated. There is mild concentric left ventricular hypertrophy. The left ventricular systolic function is normal. The Ejection Fraction is 55%. Diastology is indeterminent d ue to atrial fibrilation. RIGHT VENTRICLE The right ventricle is normal size. There is normal right ventricular wall thickness. The right ventr icular systolic function is normal. ATRIA The left atrium is dilated. The right atrium size is normal. The interatrial septum is intact with no evidence for an atrial septal defect or patent foramen ovale as noted on 2-D or Doppler imaging. AORTIC VALVE The aortic valve is calcified but opens well. Doppler and Color Flow revealed trace aortic regurgitat ion. There is no significant aortic valvular stenosis. MITRAL VALVE The mitral valve is thickened but opens well. There is no mitral valve stenosis. Doppler and Color-fl ow revealed trace mitral regurgitation. TRICUSPID VALVE The tricuspid valve is not well visualized. Doppler and Color Flow revealed trace tricuspid regurgita tion. There is no tricuspid valve stenosis. PULMONIC VALVE The pulmonic valve is not well visualized. GREAT VESSELS The aortic root is normal in size. The IVC is dilated and collapses >50% with inspiration. PERICARDIAL EFFUSION There is no evidence of significant pericardial effusion. Critical Notification Critical Value: No <Conclusion> Technically very difficult study. The left ventricular systolic function is normal. The Ejection Fraction is 55%. The left atrium is dilated. Trace mitral regurgitation. Trace tricuspid regurgitation. There is no evidence of significant pericardial effusion. Signed by : Jeffery Mcgrath, Electronically Approved : 12/14/2017 16:28:16
[2017-12-14 19:52] VITALS: BP 146/71
[2017-12-14 21:12] LABS: HEMOGLOBIN A1C 7.7 % (4.8-5.6)
[2017-12-14 21:24] VITALS: BP 120/63
[2017-12-14] MEDS: hydrALAZINE 25 MG TABLET PO SCH (21:24)
[2017-12-14 22:51] VITALS: BP 159/72
--- NOTE | 2017-12-15 04:51 | PN ---
DATE: 12/14/2017 SUBJECTIVE: The patient is a 77-year-old male patient, who was admitted yesterday with a complaint of shortness of breath, chest pain. He was diagnosed with new onset atrial fibrillation and also right lower extremity cellulitis. He was seen in consultation by the Cardiology team and was started on apixaban for stroke prevention and hydralazine just to control his blood pressure. When I saw him, he also complained of stuffy nose and we started him on Flonase and Zyrtec. On questioning him today, he said he generally felt much better. Denied any chest pain or shortness of breath. Today, his stuffy nose is much improved and erythema and swelling is much improved. PHYSICAL EXAMINATION: GENERAL: When I examined him, he looked well and was clearly in no apparent respiratory distress. No pallor, jaundice, cyanosis or thyromegaly. No jugular venous distention. Mild bilateral lower limb edema. VITAL SIGNS: His heart rate was 65, blood pressure was 121/69, temperature was 98.1, respiratory rate 20, and oxygen saturation was 93% on room air. HEAD, EYES, EARS, NOSE AND THROAT: Showed normocephalic, atraumatic. NECK: Supple. HEART: Showed normal first and second heart sounds. No gallop, rub or murmur. CHEST: Clear to auscultation. No crepitation or rhonchi. ABDOMEN: Distended, soft, nontender. NEUROLOGIC: He was awake, alert, responding appropriately. Cranial nerves intact. He moves extremities without difficulty, ambulates with a quad cane. His intake over the last 24 hours was 1500, output was 825. LABORATORY DATA: This morning showed that his serum sodium 137, potassium 4.1, chloride 99, bicarbonate 28, anion gap of 10, BUN 20, creatinine 1.2, estimated GFR was 58 mL per minute. His glucose was 173, calcium was 8.9. He has 3 sets of cardiac enzymes that showed no evidence of myocardial infarction. His serum triglycerides was 130. Total cholesterol 156, LDL cholesterol was 90, VLDL was 26, HDL cholesterol of 40 and cholesterol to HDL cholesterol ratio was 3. His D-dimer was high at 0.59. ASSESSMENT: 1. New-onset atrial fibrillation, rate controlled and we will anticoagulate on apixaban. 2. Right lower extremity cellulitis, switch him to IV vancomycin. 3. Hypertension, much better controlled. 4. Acute congestive heart failure, much better today as he was treated with IV antibiotic. 5. Chest pain, had 3 sets of cardiac enzymes that were normal and ruled out myocardial infarction. The patient is known to have coronary artery disease, status post CABG and also stents done twice. PLAN: To continue with all his current medication. Await the result of the echocardiogram and tomorrow they can be discharged back. OLY TAMEZ MD DR: MYRANDA/negrita JOB#: [id number] / [id number]
[2017-12-15 05:09] VITALS: BP 121/72
[2017-12-15] MEDS: ALBUTEROL SULFATE 2.5 MG/3 ML NEBU. NEB SCH ×2 (05:42→10:19)
[2017-12-15 07:42] LABS: BASO # 0.1 x10^3/uL (0.0-0.2); BASO % 1 % (0-3); EOS # 0.2 x10^3/uL (0.0-0.7); EOS % 2 % (0-3); HEMATOCRIT 36.6 % (39.0-53.0); HEMOGLOBIN 12.8 g/dL (13.0-17.5); LYMPH # 1.2 x10^3/uL (1.0-4.8); LYMPH % 15 % (24-48); MEAN CORPUSCULAR HEMOGLOBIN 33 pg (25-35); MEAN CORPUSCULAR HGB CONC 35 g/dL (31-37); MEAN CORPUSCULAR VOLUME 94 fL (79-100); MONO # 0.9 x10^3/uL (0.0-1.1); MONO % 11 % (0-9); NEUT # 5.8 x10^3uL (1.8-7.7); NEUT % 72 % (31-73); PLATELET COUNT 183 x10^3/uL (140-400); RED BLOOD COUNT 3.88 x10^6/uL (4.30-5.70)
[2017-12-15 07:51] LABS: CALCIUM 8.5 mg/dL (8.5-10.1); CREATININE 1.3 mg/dL (0.7-1.3); GFR 53.3; POTASSIUM 4.2 mmol/L (3.5-5.1)
[2017-12-15] MEDS: ACETAMINOPHEN 325 MG TABLET PO PRN (07:56)
[2017-12-15] MEDS: LACTOBACILLUS RHAMNOSUS GG 1 CAPSULE. PO SCH (07:56)
[2017-12-15] MEDS: FAMOTIDINE 20 MG TABLET PO SCH (07:56)
[2017-12-15] MEDS: ISOSORBIDE MONONITRATE ER 30 MG TAB.ER.24H PO SCH (07:56)
[2017-12-15] MEDS: LISINOPRIL 20 MG TABLET PO SCH (07:56)
[2017-12-15] MEDS: ATORVASTATIN CALCIUM 20 MG TABLET PO SCH (07:56)
[2017-12-15] MEDS: DOCUSATE SODIUM 100 MG CAPSULE PO SCH (07:57)
[2017-12-15] MEDS: CALCIUM CARB/VIT D3 500/200 TABLET PO SCH (07:57)
[2017-12-15] MEDS: CETIRIZINE HCL 10 MG TABLET PO SCH (07:57)
[2017-12-15] MEDS: FUROSEMIDE 40 MG TABLET PO SCH (07:57)
[2017-12-15] MEDS: CARBAMIDE PEROXIDE 6.5% OTIC SOLUTION 15ML BOTTLE. AU SCH (07:58)
[2017-12-15] MEDS: APIXABAN 5 MG TABLET. PO SCH (07:58)
[2017-12-15] MEDS: ASPIRIN 81 MG TAB.CHEW PO SCH (07:58)
[2017-12-15] MEDS: FLUTICASONE 50MCG/NASAL SPRAY 16GM BOTTLE. NS SCH (07:59)
[2017-12-15] MEDS: NEOMYCIN/POLYMYXIN/HC OTIC SUSPENSION 10ML BOTTLE. AU SCH (07:59)
[2017-12-15] MEDS: INSULIN GLARGINE 300 UNITS/3 ML INSULN.PEN. SQ SCH (08:07)
[2017-12-15] MEDS: INSULIN LISPRO 300 UNITS/3 ML INSULN.PEN. SQ SCH (08:07)
[2017-12-15] MEDS: VANCOMYCIN PER PHARMACY MC PRN (08:27)
[2017-12-15] MEDS ORDERED: VANCOMYCIN 1.5 GM in IV NORMAL SALINE 500ML 500 ML IV SCH (09:00)
[2017-12-15] MEDS: hydrALAZINE 25 MG TABLET PO SCH (09:00)
[2017-12-15 09:15] VITALS: BP 126/70
--- NOTE | 2017-12-15 09:28 | PDOC ---
PROGRESS NOTES Diagnosis Problem Problems Medical Problems: (1) Cellulitis of right lower extremity Status: Acute (2) CHF (congestive heart failure) Status: Acute (3) Diabetes mellitus Status: Acute (4) Morbid obesity Status: Acute (5) New onset atrial fibrillation Status: Acute Assessment Problems Medical Problems: (1) Cellulitis of right lower extremity Status: Acute (2) CHF (congestive heart failure) Status: Acute (3) Diabetes mellitus Status: Acute (4) Morbid obesity Status: Acute (5) New onset atrial fibrillation Status: Acute 1. Chest pain - PR ruled out. echo reveals normal LV function. Awaiting most recent cath report. Plan for outpatient MPI in light of CP relieved with nitrates. Angina free currently. Continue aspirin, statin, nitrate. No beta marisa due to borderline bradycardia. 2. mild chronic diastolic heart failure - clinically compensated currently. CXR without pulmonary congestion. continue medical mgmt. 3. new onset atrial fibrillation - on anticoag, rate controlled without BB or CCB. Call to insurance provider to verify formulary coverage for Eliquis. 4. CAD/CABG status with subsequent PCI/stenting - requested records of cardiac cath within last 2 years. Continue medical mgmt, outpatient stress testing for chest pain and progression of known CAD 5. hypertension - improved after addition of hydralazine. Continue current medical mgmt. 6. hyperlipidemia - LDL goal </=70. Currently 90 on max dose Lipitor. Add Zetia, and follow up as outpatient. May consider addition of PCSK9 inhibitors. Subjective no new complaints. no chest pain, no dyspnea, no palpitations, lightheadedness or syncope. Objective Echo - Technically very difficult study. The left ventricular systolic function is normal. The Ejection Fraction is 55%. The left atrium is dilated. Trace mitral regurgitation. Trace tricuspid regurgitation. There is no evidence of significant pericardial effusion. Vital Signs Date Time Temp Pulse Resp B/P (MAP) Pulse Ox O2 Delivery O2 Flow Rate FiO2 12/15/17 09:15 126/70 (88) 12/15/17 08:00 Room Air 12/15/17 07:56 55 12/15/17 05:42 92 12/15/17 05:09 98.3 16 Intake and Output 12/15/17 07:00 Intake Total 2820 ml Output Total 2800 ml Balance 20 ml Intake Oral 2320 ml IV Total 500 ml Output Urine Total 2800 ml Physical Exam Abdomen: Normal bowel sounds, Soft Heart: Normal S1, Normal S2, Other (no gallops, clicks or rubs) Extremities: Other (+ bilateral lower extremity edema) General: Alert, Oriented X3, Cooperative, No acute distress Lungs: Other (decreased bases otherwise clear) Neuro: Normal speech, Strength at 5/5 X4 ext Psych/Mental Status: Mental status NL, Mood NL Review of Relevant I have reviewed the following items catalina (where applicable) has been applied. Labs Laboratory Tests Test 12/13/17 12:26 12/13/17 13:33 12/13/17 16:22 12/13/17 17:07 White Blood Count 6.9 x10^3/uL (4.0-11.0) Red Blood Count 4.33 x10^6/uL (4.30-5.70) Hemoglobin 14.1 g/dL (13.0-17.5) Hematocrit 40.9 % (39.0-53.0) Mean Corpuscular Volume 94 fL (79-100) Mean Corpuscular Hemoglobin 33 pg (25-35) Mean Corpuscular Hemoglobin Concent 35 g/dL (31-37) Red Cell Distribution Width 13.0 % (11.5-14.5) Platelet Count 212 x10^3/uL (140-400) Neutrophils (%) (Auto) 54 % (31-73) Lymphocytes (%) (Auto) 31 % (24-48) Monocytes (%) (Auto) 11 % (0-9) Eosinophils (%) (Auto) 2 % (0-3) Basophils (%) (Auto) 1 % (0-3) Neutrophils # (Auto) 3.7 x10^3uL (1.8-7.7) Lymphocytes # (Auto) 2.1 x10^3/uL (1.0-4.8) Monocytes # (Auto) 0.8 x10^3/uL (0.0-1.1) Eosinophils # (Auto) 0.2 x10^3/uL (0.0-0.7) Basophils # (Auto) 0.0 x10^3/uL (0.0-0.2) Prothrombin Time 11.3 SEC (9.4-11.4) Prothromb Time International Ratio 1.1 (0.9-1.1) Activated Partial Thromboplast Time 24 SEC (23-33) D-Dimer (Paula) 0.59 mg/L (0.00-0.50) Sodium Level 141 mmol/L (136-145) Potassium Level 4.0 mmol/L (3.5-5.1) Chloride Level 102 mmol/L (98-107) Carbon Dioxide Level 32 mmol/L (21-32) Anion Gap 7 (6-14) Blood Urea Nitrogen 22 mg/dL (8-26) Creatinine 1.1 mg/dL (0.7-1.3) Estimated GFR (Cockcroft-Gault) 64.6 BUN/Creatinine Ratio 20 (6-20) Glucose Level 89 mg/dL (70-99) Calcium Level 9.0 mg/dL (8.5-10.1) Magnesium Level 2.3 mg/dL (1.8-2.4) Total Bilirubin 0.6 mg/dL (0.2-1.0) Aspartate Amino Transf (AST/SGOT) 16 U/L (15-37) Alanine Aminotransferase (ALT/SGPT) 23 U/L (16-63) Alkaline Phosphatase 74 U/L (46-116) Creatine Kinase 140 U/L (39-308) Troponin I Quantitative < 0.017 ng/mL (0-0.055) < 0.017 ng/mL (0-0.055) KW-Fbn-X-Type Natriuretic Peptide 1311 pg/mL (0-449) Total Protein 7.7 g/dL (6.4-8.2) Albumin 3.8 g/dL (3.4-5.0) Albumin/Globulin Ratio 1.0 (1.0-1.7) Lipase 357 U/L (73-393) Urine Opiates Screen Neg (NEG) Urine Methadone Screen Neg (NEG) Urine Barbiturates Neg (NEG) Urine Phencyclidine Screen Neg (NEG) Urine Amphetamine/Methamphetamine Neg (NEG) Urine Benzodiazepines Screen Neg (NEG) Urine Cocaine Screen Neg (NEG) Urine Cannabinoids Screen Neg (NEG) Urine Ethyl Alcohol Neg (NEG) Glucose (Fingerstick) 116 mg/dL (70-99) Test 12/13/17 20:23 12/13/17 20:54 12/14/17 05:31 12/14/17 07:17 Glucose (Fingerstick) 153 mg/dL (70-99) 169 mg/dL (70-99) Troponin I Quantitative < 0.017 ng/mL (0-0.055) Sodium Level 137 mmol/L (136-145) Potassium Level 4.1 mmol/L (3.5-5.1) Chloride Level 99 mmol/L (98-107) Carbon Dioxide Level 28 mmol/L (21-32) Anion Gap 10 (6-14) Blood Urea Nitrogen 20 mg/dL (8-26) Creatinine 1.2 mg/dL (0.7-1.3) Estimated GFR (Cockcroft-Gault) 58.4 Glucose Level 173 mg/dL (70-99) Hemoglobin A1c 7.7 % (4.8-5.6) Calcium Level 8.9 mg/dL (8.5-10.1) Triglycerides Level 130 mg/dL (0-150) Cholesterol Level 156 mg/dL (0-200) LDL Cholesterol, Calculated 90 mg/dL (0-100) VLDL Cholesterol, Calculated 26 mg/dL (0-40) Non-HDL Cholesterol Calculated 116 mg/dL (0-129) HDL Cholesterol 40 mg/dL (40-60) Cholesterol/HDL Ratio 3.0 Test 12/14/17 11:57 12/14/17 16:30 12/14/17 19:33 12/15/17 07:24 Glucose (Fingerstick) 245 mg/dL (70-99) 218 mg/dL (70-99) 204 mg/dL (70-99) 145 mg/dL (70-99) Test 12/15/17 07:31 White Blood Count 8.0 x10^3/uL (4.0-11.0) Red Blood Count 3.88 x10^6/uL (4.30-5.70) Hemoglobin 12.8 g/dL (13.0-17.5) Hematocrit 36.6 % (39.0-53.0) Mean Corpuscular Volume 94 fL (79-100) Mean Corpuscular Hemoglobin 33 pg (25-35) Mean Corpuscular Hemoglobin Concent 35 g/dL (31-37) Red Cell Distribution Width 13.0 % (11.5-14.5) Platelet Count 183 x10^3/uL (140-400) Neutrophils (%) (Auto) 72 % (31-73) Lymphocytes (%) (Auto) 15 % (24-48) Monocytes (%) (Auto) 11 % (0-9) Eosinophils (%) (Auto) 2 % (0-3) Basophils (%) (Auto) 1 % (0-3) Neutrophils # (Auto) 5.8 x10^3uL (1.8-7.7) Lymphocytes # (Auto) 1.2 x10^3/uL (1.0-4.8) Monocytes # (Auto) 0.9 x10^3/uL (0.0-1.1) Eosinophils # (Auto) 0.2 x10^3/uL (0.0-0.7) Basophils # (Auto) 0.1 x10^3/uL (0.0-0.2) Sodium Level 138 mmol/L (136-145) Potassium Level 4.2 mmol/L (3.5-5.1) Chloride Level 101 mmol/L (98-107) Carbon Dioxide Level 28 mmol/L (21-32) Anion Gap 9 (6-14) Blood Urea Nitrogen 21 mg/dL (8-26) Creatinine 1.3 mg/dL (0.7-1.3) Estimated GFR (Cockcroft-Gault) 53.3 Glucose Level 173 mg/dL (70-99) Calcium Level 8.5 mg/dL (8.5-10.1) Vancomycin Level Trough 21.0 mcg/mL (10.0-20.0) Vancomycin Last Dose Date 12/14/17 Vancomycin Last Dose Time 1999 Medications Current Medications Diltiazem HCl (Cardizem) 20 mg 1X ONCE IVP Last administered on 12/13/17at 13: 41; Start 12/13/17 at 13:45; Stop 12/13/17 at 13:46; Status DC Cefazolin Sodium 1 gm/Sodium Chloride 50 ml @ 100 mls/hr 1X ONCE IV Last administered on 12/13/17at 13:56; Start 12/13/17 at 14:15; Stop 12/13/17 at 14 :44; Status DC Furosemide (Lasix) 40 mg 1X ONCE IVP Last administered on 12/13/17at 13:56; Start 12/13/17 at 14:15; Stop 12/13/17 at 14:16; Status DC Sodium Chloride 50 ml @ As Directed STK-MED ONCE .ROUTE ; Start 12/13/17 at 13: 52; Stop 12/13/17 at 13:53; Status DC Cefazolin Sodium (Ancef) 1 gm STK-MED ONCE .ROUTE ; Start 12/13/17 at 13:53; Stop 12/13/17 at 13:54; Status DC Cetirizine HCl (ZyrTEC) 10 mg DAILY PO Last administered on 12/15/17at 07:57; Start 12/14/17 at 09:00 Fluticasone Propionate (Flonase) 2 spray DAILY NS Last administered on at 07:59; Start 12/14/17 at 09:00 Influenza Virus Vaccine (Afluria Trivalent 7918-9887 Syringe) 0.5 ml ONCE ONCE VAX IM Last administered on 12/14/17at 08:56; Start 12/14/17 at 09:00; Stop 12/14/17 at 09:01; Status DC Apixaban (Eliquis) 5 mg BID PO Last administered on 12/15/17at 07:58; Start at 21:00 Acetaminophen (Tylenol) 650 mg PRN QID PRN PO PAIN Last administered on at 07:56; Start 12/13/17 at 18:15 Calcium/Vitamin D (Oscal D 500mg/ 200uts) 1 tab DAILY PO Last administered on 12/15/17at 07:57; Start 12/14/17 at 09:00 Insulin Glargine (Lantus) 15 units DAILY SQ Last administered on 12/15/17at 08: 07; Start 12/14/17 at 09:00 Isosorbide Mononitrate (Imdur) 30 mg DAILY PO Last administered on 12/15/17at 07:56; Start 12/14/17 at 09:00 Nitroglycerin (Nitrostat) 0.4 mg PRN Q5MIN PRN SL CHEST PAIN; Start 12/13/17 at 18:30 Aspirin (Children'S Aspirin) 81 mg DAILYWBKFT PO Last administered on at 07:58; Start 12/14/17 at 08:00 Atorvastatin Calcium (Lipitor) 80 mg DAILY PO Last administered on 12/15/17at 07:56; Start 12/14/17 at 09:00 Docusate Sodium (Colace) 100 mg BID PO Last administered on 12/15/17 07:57; Start 12/13/17 at 21:00 Furosemide (Lasix) 40 mg DAILY PO Last administered on 12/15/17at 07:57; Start 12/14/17 at 09:00 Insulin Human Lispro (HumaLOG) 5 units DAILYWBKFT SQ Last administered on 12/15at 08:07; Start 12/14/17 at 08:00 Lisinopril (Prinivil) 40 mg DAILY PO Last administered on 12/15/17at 07:56; Start 12/14/17 at 09:00 Meclizine HCl (Antivert) 25 mg PRN BID PRN PO DIZZINESS; Start 12/13/17 at 18: 30 Non-Formulary Medication (Mometasone/ Formoterol (Dulera 200 Mcg/5 Mcg Inhaler) ) 2 puff BID IH ; Start 12/13/17 at 21:00; Status UNV Neomycin/ Polymyxin/ Hydrocortisone (Cortisporin Otic) 4 drop TID AU Last administered on 12/15/17 07:59; Start 12/13/17 at 21:00 Famotidine (Pepcid) 20 mg BID PO Last administered on 12/15/17 07:56; Start 12/13/17 at 21:00 Carbamide Peroxide (Debrox) 5 drop BID AU Last administered on 12/14/17at 21:26 ; Start 12/13/17 at 21:00 Vancomycin HCl (Vanco Per Pharmacy) 1 each PRN DAILY PRN MC SEE COMMENTS Last administered on 12/15/17at 08:27; Start 12/13/17 at 18:15 Albuterol Sulfate (Ventolin) 2.5 mg RTQID NEB Last administered on 12/15/17at 05:42; Start 12/13/17 at 20:00 Budesonide (Pulmicort) 0.5 mg RTBID NEB Last administered on 12/14/17 21:04; Start 12/13/17 at 20:00 Vancomycin HCl 2 gm/Sodium Chloride 500 ml @ 250 mls/hr Q12H IV Last administered on 12/14/17 19:56; Start 12/13/17 at 20:00; Stop 12/15/17 at 08 :15; Status DC Vancomycin HCl (Vancomycin Trough Level) 1 each 1X ONCE MC Last administered on 12/15/17at 07:30; Start 12/15/17 at 07:30; Stop 12/15/17 at 07:31; Status DC Lactobacillus Rhamnosus (Culturelle) 1 cap BID PO Last administered on at 07:56; Start 12/14/17 at 09:00 Hydralazine HCl (Apresoline) 25 mg BID PO Last administered on 12/14/17at 21:24 ; Start 12/14/17 at 21:00 Vancomycin HCl 1.5 gm/Sodium Chloride 500 ml @ 250 mls/hr Q12H IV Last administered on 12/15/17at 09:09; Start 12/15/17 at 09:00 Vancomycin HCl (Vancomycin Trough Level) 1 each 1X ONCE MC ; Start 12/16/17 at 20:30; Stop 12/16/17 at 20:31 Active Scripts Active Reported Novolog (Insulin Aspart) 100 Unit/1 Ml Vial 5 Unit SQ DAILY Lantus Solostar (Insulin Glargine,Hum.rec.anlog) 100 Unit/1 Ml Insuln.pen 15 Unit SQ DAILY Ranitidine Hcl 150 Mg Tablet 1 Tab PO BID NITROGLYCERIN SubLingual (Nitroglycerin) 0.4 Mg Tab.subl 1 Tab SL UD Kaxibbab-Okkreacyi-Ej Ear Susp (Neomycin/Polymyxin B Sulf/Hc) 10 Ml Drops.susp 4 Drop EACH EAR TID Dulera 200 Mcg/5 Mcg Inhaler (Mometasone/Formoterol) 13 Gm Hfa.aer.ad 2 Puff IH BID Metoprolol Tartrate 50 Mg Tablet 1 Tab PO BID Meclizine Hcl 25 Mg Tablet 25 Mg PO BID PRN Lisinopril 40 Mg Tablet 1 Tab PO DAILY Isosorbide Mononitrate Er (Isosorbide Mononitrate) 30 Mg Tab.er.24h 1 Tab PO DAILY Furosemide 40 Mg Tablet 1 Tab PO DAILY Docusate Sodium 100 Mg Capsule 1 Cap PO BID Carbamide Peroxide 15 Ml Drops 15 Ml OT Calcium 500 + Vit D 200 Tablet (Calcium Carbonate/Vitamin D3) 1 Each Tablet 1 Each PO DAILY Atorvastatin Calcium 80 Mg Tablet 1 Tab PO DAILY Aspirin 81 Mg Tab.chew 81 Mg PO DAILY Tylenol (Acetaminophen) 325 Mg Tablet 1-2 Tab PO QID Vitals/I & O Vital Sign - Last 24 Hours 12/14/17 12/14/17 12/14/17 12/14/17 09:30 11:16 15:41 15:46 Temp 98.1 97.9 Pulse 65 66 Resp 20 20 B/P (MAP) 121/69 (86) 143/72 (95) Pulse Ox 95 93 95 95 O2 Delivery Room Air Room Air Room Air Room Air 12/14/17 12/14/17 12/14/17 12/14/17 19:52 20:30 21:04 21:09 Temp 98.1 Pulse 67 Resp 18 B/P (MAP) 146/71 (96) Pulse Ox 95 94 94 O2 Delivery Room Air Room Air Room Air Room Air 12/14/17 12/14/17 12/14/17 12/15/17 21:24 21:24 22:51 05:09 Temp 97.5 98.0 98.3 Pulse 71 71 60 55 Resp 20 16 B/P (MAP) 120/63 120/63 (82) 159/72 (101) 121/72 (88) Pulse Ox 93 96 96 O2 Delivery Room Air Room Air Room Air 12/15/17 12/15/17 12/15/17 12/15/17 05:42 07:56 07:56 08:00 Pulse 55 55 B/P (MAP) 121/72 121/72 Pulse Ox 92 O2 Delivery Room Air Room Air 12/15/17 09:15 B/P (MAP) 126/70 (88) Intake and Output 12/14/17 12/14/17 12/15/17 15:00 23:00 07:00 Intake Total 2020 ml 600 ml 200 ml Output Total 1100 ml 500 ml 1200 ml Balance 920 ml 100 ml -1000 ml ARNIE CHAPMAN APRN Dec 15, 2017 09:28
[2017-12-15 09:50] VITALS: BP 123/68
[2017-12-15] MEDS: BUDESONIDE 0.5 MG/2 ML NEBU NEB SCH (10:19)
[2017-12-15] MEDS ORDERED: DOXY100T PO (12:34)
--- NOTE | 2017-12-15 22:32 | DS ---
DATE OF DISCHARGE: 12/15/2017 HOSPITAL COURSE: The patient is a 77-year-old male patient who is currently at [facility] after he was released from retirement, who was admitted with right lower extremity cellulitis, new onset atrial fibrillation. He was also found to have acute on chronic diastolic congestive heart failure afternoon. He was seen by the Cardiology team, was started on Eliquis. He has had an echocardiogram, which showed that the left ventricular systolic function is normal, ejection fraction was 55%. His left atrium is dilated. He has trace mitral regurgitation, tricuspid regurgitation; however, no evidence of any significant pericardial effusion. He was treated with IV Lasix. Her blood pressure was high, so hydralazine was added. His erythema has responded very well to IV vancomycin. He remained; however, hemodynamically stable and afebrile. His blood pressure was actually if anything on the lower side and we held his hydralazine today and a decision was made to discharge him back to the [facility], to continue his Eliquis, continue all his medication, and also doxycycline 100 mg twice a day for 7 days to finish treatment of her right lower extremity cellulitis. PHYSICAL EXAMINATION: GENERAL: When I examined him today, he was sitting comfortably in his chair, in no apparent respiratory distress, slightly pale, no jaundice, cyanosis, or thyromegaly. No jugular venous distension. No limb edema. VITAL SIGNS: His heart rate was 55, blood pressure was 121/72, temperature was 98.3, respiratory rate was 16, and oxygen saturation was 96% on room air. HEAD, EYES, EARS, NOSE AND THROAT: Showed normocephalic, atraumatic. NECK: Supple. HEART: Showed normal first and second heart sounds with no gallop, rub or murmur. CHEST: Clear to auscultation. No crepitation or rhonchi. ABDOMEN: Distended, soft, and nontender. NEUROLOGIC: He was awake, alert, responding appropriately. All cranial nerves intact. He moves extremities without difficulty, ambulates without assistance or assistive devices. His intake over the last 24 hours was 2800, output was 2800. LABORATORY DATA: Her lab work this morning showed a white cell count of 8000, hemoglobin 12.8, hematocrit 36.6, MCV 94, and platelet count of 183,000. His serum sodium was 138, potassium 4.2, chloride 101, bicarbonate 28, anion gap of 9, BUN 21, creatinine 1.3, estimated GFR was 53 mL per minute, his glucose 173, and calcium was 8.5. His prothrombin time was 11.3, INR 1.1, aPTT was 24, and D-dimer was slightly elevated at 0.59. DISCHARGE MEDICATIONS: He will be discharged back to [facility] to continue on doxycycline 100 mg twice a day, acetaminophen 650 mg 4 times a day, aspirin 81 mg once a day, atorvastatin calcium 80 mg at bedtime, calcium carbonate, vitamin D3 one tablet once a day, carbamide peroxide 5 drops to both ears twice a day, Colace 100 mg twice a day, furosemide 40 mg once a day. He is on NovoLog insulin 5 units subcutaneously before meals and 15 units at bedtime, isosorbide mononitrate 30 mg daily, lisinopril 40 mg once a day, meclizine 25 mg twice a day, metoprolol tartrate 50 mg twice a day, mometasone/formoterol (Dulera) 2 puffs twice a day, neomycin, polymyxin ear suspension 4 drops to each ear 3 times a day, nitroglycerin 0.4 mg sublingually as needed, and ranitidine 150 mg p.o. b.i.d. He will also be on Zetia 10 mg p.o. daily. FINAL DISCHARGE DIAGNOSES: 1. Chest pain, myocardial infarction ruled out. His left ventricular systolic function is normal and arrangement has been made for him to have an outpatient nuclear stress test, mild chronic diastolic congestive heart failure. The patient was over diuresed and so that I will hold his Lasix for the next 2 days. 2. New onset atrial fibrillation and started on rate controlled without beta blockers or calcium channel blockers. He was started on Eliquis 5 mg twice a day. 3. Hypertension, well controlled. 3. Hyperlipidemia for which he is on atorvastatin as well as Zetia. 4. Right lower extremity cellulitis for which she would continue on doxycycline 100 mg twice a day. OLY TAMEZ MD DR: MYRANDA/negrita JOB#: [id number] / [id number]
[2017-12-16] MEDS ORDERED: EZETIMIBE 10 MG TABLET PO SCH (09:00)
== END 2017-12-15 13:39 | disposition home or self-care (01) | DRG 602 ==
LOC: ER 12:35 → 1 SOUTH 13:40
PROVIDERS: ADMIT Internal Medicine; ATTEND Internal Medicine
DX: L03.115 Cellulitis of right lower limb (principal); I50.33 Acute on chronic diastolic (congestive) heart failure; Z68.41 Body mass index [BMI] 40.0-44.9, adult; I11.0 Hypertensive heart disease with heart failure; I48.91 Unspecified atrial fibrillation; E11.9 Type 2 diabetes mellitus without complications; E66.01 Morbid (severe) obesity due to excess calories; E78.5 Hyperlipidemia, unspecified; H40.9 Unspecified glaucoma; I25.10 Atherosclerotic heart disease of native coronary artery without angina pectoris; J44.9 Chronic obstructive pulmonary disease, unspecified; Z79.01 Long term (current) use of anticoagulants; Z79.4 Long term (current) use of insulin; Z82.49 Family history of ischemic heart disease and other diseases of the circulatory system; Z87.891 Personal history of nicotine dependence; Z91.11 Patient's noncompliance with dietary regimen; Z95.1 Presence of aortocoronary bypass graft; Z79.899 Other long term (current) drug therapy; Z88.0 Allergy status to penicillin
CPT/HCPCS: 36415; 71046; 80048; 80053; 80061; 80202; 80307; 82550; 82947; 83036; 83690; 83735; 83880; 84484; 85025; 85379; 85610; 85730; 90471; 90756; 93005; 93306; 93971; 94640; 96374; 96375; J0690; J1815; J1940; J3370; J3490; J7040; J7613; J7626; 99285-25; G0479; Q2035

== ENCOUNTER 2017-12-22 06:58 | Inpatient (IN) | payer OTHER ==
[~2017-12-22] VITALS: Ht 182.9 cm; Wt 146.1 kg
[~2017-12-22 06:58] MED LIST: ACET325T9 PO; ASPI-630 PO; ATORVASTATIN CA80 MG PO; CALC-157 PO; CARB15DR58 OT; DOCU100C28 PO; DOXY100T PO; FURO40TA4 PO; INSU100I13 SQ; INSU100V31 SQ; ISOS30TA4 PO; LISI40TA PO; MECL25TA3 PO; METO50TA6 PO; MOME13HF IH; NEOM10DR32 EACH EAR; NITR0.4T22 SL; RANI150T2 PO
--- NOTE | 2017-12-22 07:28 | PHYS DOC ---
Past History Past Medical History: A-Fib, CHF, COPD, Hypertension Past Surgical History: Coronary Bypass Surgery Alcohol Use: None Drug Use: None Adult General Chief Complaint Chief Complaint: ABSCESS [facility] HPI Patient is a 77 year old male who presents with complaining of abdominal wall abscess. Patient states he was admitted in this hospital for new onset of atrial fibrillation and lower extremity cellulitis and discharged home 5 days ago. Patient states he had left abdominal wall redness and pain while he was at Hospital and discharged home with prescription of antibiotic but was not able to get his medication and for the last 2 days had drainage of bloody pus without fever and chills, nausea and vomiting, history of MRSA. Patient is diabetic and states he didn't check his blood sugar for the last couple days. Patient is up-to-date with tetanus immunization. Review of Systems Review of Systems Constitutional: Denies fever or chills [] Eyes: Denies change in visual acuity, redness, or eye pain [] HENT: Denies nasal congestion or sore throat [] Respiratory: Denies cough or shortness of breath [] Cardiovascular: No additional information not addressed in HPI [] GI: Denies abdominal pain, nausea, vomiting, bloody stools or diarrhea [] : Denies dysuria or hematuria [] Musculoskeletal: Denies back pain or joint pain [] Integument: Denies rash , reports skin lesions [] Neurologic: Denies headache, focal weakness or sensory changes [] Endocrine: Denies polyuria or polydipsia [] All other systems were reviewed and found to be within normal limits, except as documented in this note. Allergies Allergies Allergies Coded Allergies Type Severity Reaction Last Updated Verified Penicillins Allergy Intermediate 12/13/17 Yes Physical Exam Physical Exam Constitutional: Well developed, well nourished, no acute distress, non-toxic appearance. [] HENT: Normocephalic, atraumatic, bilateral external ears normal, oropharynx moist, no oral exudates, nose normal. [] Eyes: PERRLA, EOMI, conjunctiva normal, no discharge. [] Neck: Normal range of motion, no tenderness, supple, no stridor. [] Cardiovascular: Irregularly irregular, no murmur [] Lungs & Thorax: Bilateral breath sounds clear to auscultation [] Abdomen: Bowel sounds normal, soft, no tenderness, no masses, no pulsatile masses. [] Skin: Warm, dry, left abdomen for 5 x 10 cm erythema and central fluctuation with 2 puncture wounds and drainage of pus Back: No tenderness, no CVA tenderness. [] Extremities: No tenderness, no cyanosis, no clubbing, ROM intact, no edema. [] Neurologic: Alert and oriented X 3, normal motor function, normal sensory function, no focal deficits noted. [] Psychologic: Affect normal, judgement normal, mood normal. [] Current Patient Data Vital Signs Vital Signs Date Time Temp Pulse Resp B/P (MAP) Pulse Ox O2 Delivery O2 Flow Rate FiO2 12/22/17 07:05 97.6 72 24 95 Room Air EKG EKG [] Radiology/Procedures Radiology/Procedures [] Course & Med Decision Making Course & Med Decision Making Pertinent Labs reviewed. (See chart for details) Evaluation of patient in ER showed 77-year-old male patient with history of diabetes and left abdominal wall abscess that was drained in ER. Because of obesity and diabetes mellitus and recent hospitalization plan to admit patient for IV antibiotic treatment. Dr Taylor accepted admission at 0748. Dragon Disclaimer Dragon Disclaimer This electronic medical record was generated, in whole or in part, using a voice recognition dictation system. Incision and Drainage Indication: Abdominal wall abscess Procedure: The patient was positioned appropriately and the skin over the incision site was prepped with normal saline and alcohol.. Local anesthesia was given with 2 mL of 1% lidocaine. An incision was then made over left lower abdominal wall abscess and moderate amount of the pus material was expressed. Loculations were removed and the drainage cavity was then irrigated and packing and dressing was applied. The patients tetanus status is up-to-date The patient tolerated the procedure well Complications: None Departure Departure: Impression: Primary Impression: Abdominal wall abscess Additional Impressions: Diabetes mellitus Atrial fibrillation Morbid obesity with BMI of 40.0-44.9, adult Disposition: 09 ADMITTED INPATIENT (@0749) Admitting Physician: Other (Dr. Chloe Taylor accepted admission at 0748) Condition: IMPROVED Referrals: CHLOE TAYLOR DO (PCP) Problem Qualifiers NESHA GONSALES MD Dec 22, 2017 07:28
[2017-12-22] MEDS ORDERED: LIDOCAINE 1% Multi-Dose 20 ML VIAL. IJ ONE (07:45)
[2017-12-22] MEDS ORDERED: VANCOMYCIN 1 GM in IV NORMAL SALINE 250ML 250 ML IV ONE (07:45)
[2017-12-22] MEDS ORDERED: IV NORMAL SALINE 50ML 50 ML ONE (07:55)
[2017-12-22] MEDS ORDERED: cefTRIAXone SODIUM 1 GM VIAL IV ONE (07:55)
[2017-12-22 08:23] LABS: ALBUMIN 3.2 g/dL (3.4-5.0); ALBUMIN/GLOBULIN RATIO 0.8 (1.0-1.7); CALCIUM 8.5 mg/dL (8.5-10.1); CREATININE 1.2 mg/dL (0.7-1.3); GFR 58.4; POTASSIUM 4.2 mmol/L (3.5-5.1); TOTAL BILIRUBIN 0.4 mg/dL (0.2-1.0)
[2017-12-22 08:28] LABS: BASO # 0.1 x10^3/uL (0.0-0.2); BASO % 1 % (0-3); EOS # 0.2 x10^3/uL (0.0-0.7); EOS % 2 % (0-3); HEMATOCRIT 36.8 % (39.0-53.0); HEMOGLOBIN 12.7 g/dL (13.0-17.5); LYMPH # 1.5 x10^3/uL (1.0-4.8); LYMPH % 18 % (24-48); MEAN CORPUSCULAR HEMOGLOBIN 32 pg (25-35); MEAN CORPUSCULAR HGB CONC 35 g/dL (31-37); MEAN CORPUSCULAR VOLUME 94 fL (79-100); MONO # 0.9 x10^3/uL (0.0-1.1); MONO % 10 % (0-9); NEUT % 70 % (31-73); PLATELET COUNT 231 x10^3/uL (140-400); RED BLOOD COUNT 3.92 x10^6/uL (4.30-5.70); RED CELL DISTRIBUTION WIDTH 13.1 % (11.5-14.5); WHITE BLOOD COUNT 8.6 x10^3/uL (4.0-11.0)
[2017-12-22] MEDS ORDERED: VANCOMYCIN 2 GM in IV NORMAL SALINE 500ML 500 ML IV ONE (08:30)
[2017-12-22] MEDS ORDERED: EZET10TA18 PO (09:35)
[2017-12-22] MEDS ORDERED: APIX5TAB3 PO (09:35)
[2017-12-22 10:16] VITALS: BP 154/87
--- NOTE | 2017-12-22 15:56 | PDOC1 ---
History and Physical Date of Admission: Date of Admission: 12/22/17 Chief Complaint: Chief Complain: abscess ProblemList: Abdominal wall abscess Atrial fibrillation CHF (congestive heart failure) Diabetes mellitus Morbid obesity with BMI of 40.0-44.9, adult Source: Source: Caregiver, Chart review, Patient HPI: HPI: Pt 77/M follows with me to ED with abdominal wall skin abscess. Incarcerated 20 years currently [facility] thru 01/05, recently admitted here for new onset atrial fibrillation 12/13-. Was discharged with rx for antibiotic but it wasn't filled for some reason. Presented to ED with two days worsening left sided abdominal skin abscess, bleeding and draining pus. No fever or other systemic sign of infection, admitted for IV abx due to diabetes and failure of outpatient treatment. Wound I/D by ED physician cultures obtained started on rocephin/vanco in ED. WBC/lactic acid normal cultures are pending see below for labs and VS. I find him sitting up in bed watching TV in [facility]. He is an entertaining and charismatic gentleman with no complaints. Past Medical History: Cardiovascular: AFIB, CHF, HTN Pulmonary: COPD Endocrine: Diabetes Past Surgical History: PSH: CABG , PTCI with stent x 2 '08 Social History: Smoke: Quit (1965) Alcohol: none Drugs: None Allergies: Allergies: Coded Allergies: Penicillins (Verified Allergy, Intermediate, 12/13/17) Current Medications: Current Medications: Current Medications Medications (Trade) Dose Ordered Sig/Jada Start Time Stop Time Status Last Admin Dose Admin Acetaminophen (Tylenol) 650 mg QID 12/22/17 17:00 UNV Calcium/Vitamin D (Oscal D 500mg/ 200uts) 1 tab DAILY 12/23/17 09:00 UNV Ceftriaxone Sodium 1 gm/ Sodium Chloride 50 ml @ 100 mls/hr 1X ONCE 12/22/17 08:00 12/22/17 08:29 DC 12/22/17 08:05 100 MLS/HR Ceftriaxone Sodium (Rocephin) 1 gm STK-MED ONCE 12/22/17 07:55 12/22/17 07:56 DC Insulin Glargine (Lantus) 15 units DAILY 12/23/17 09:00 UNV Isosorbide Mononitrate (Imdur) 30 mg DAILY 12/23/17 09:00 UNV Lidocaine HCl 20 ml 1X ONCE 12/22/17 07:45 12/22/17 07:46 DC 12/22/17 08:40 20 ML Non-Formulary Medication (Apixaban (Eliquis)) 5 mg BID 12/22/17 21:00 UNV Non-Formulary Medication (Aspirin ) 81 mg DAILY 12/23/17 09:00 UNV Non-Formulary Medication (Atorvastatin Calcium ) 1 tab DAILY 12/23/17 09:00 UNV Non-Formulary Medication (Docusate Sodium ) 1 cap BID 12/22/17 21:00 UNV Non-Formulary Medication (Ezetimibe (Zetia)) 1 tab DAILY 12/23/17 09:00 UNV Non-Formulary Medication (Furosemide ) 1 tab DAILY 12/23/17 09:00 UNV Non-Formulary Medication (Insulin Aspart (Novolog)) 5 unit DAILY 12/23/17 09:00 UNV Non-Formulary Medication (Lisinopril ) 1 tab DAILY 12/23/17 09:00 UNV Non-Formulary Medication (Meclizine Hcl ) 25 mg BID PRN 12/22/17 15:45 UNV Non-Formulary Medication (Metoprolol Tartrate ) 1 tab BID 12/22/17 21:00 UNV Non-Formulary Medication (Mometasone/ Formoterol (Dulera 200 Mcg/5 Mcg Inhaler)) 2 puff BID 12/22/17 21:00 UNV Non-Formulary Medication (Neomycin/ Polymyxin B Sulf/ Hc (Qzqzedpg-Pfgoblizw-Yr Ear Susp)) 4 drop TID 12/22/17 21:00 UNV Non-Formulary Medication (Ranitidine Hcl ) 1 tab BID 12/22/17 21:00 UNV Sodium Chloride 50 ml @ As Directed STK-MED ONCE 12/22/17 07:55 12/22/17 07:56 DC Vancomycin HCl 1 gm/Sodium Chloride 250 ml @ 250 mls/hr 1X ONCE 12/22/17 07:45 12/22/17 07:49 DC Vancomycin HCl 2 gm/Sodium Chloride 500 ml @ 250 mls/hr 1X ONCE 12/22/17 08:30 12/22/17 10:29 DC 12/22/17 08:40 250 MLS/HR ROS: ROS: Constitutional: No measured fever or chills Eyes: No eye pain or blurred vision Skin: No rash or itching Cardiovascular: see HPI Respiratory: No cough or difficulty breathing Gastrointestinal: No nausea, vomiting, or abdominal pain Neurologic: No headaches or focal neurologic deficits Endocrine: No heat or cold intolerance Genitourinary: No incontinence or hematuria Musculoskeletal: No joint pain or swelling Lymphatics: No enlarged lymph nodes Psychiatric: No anxiety or depression PE: PE: Gen.: Alert, pleasant, no apparent distress HEENT: Normocephalic atraumatic, no scleral icterus, oral mucosa pink and moist Neck: Supple, no lymphadenopathy, nontender Cardiovascular: Normal S1 and S2 no murmurs Pulmonary: Lungs are clear bilaterally with good air movement no respiratory distress Abdomen: sterile dressing mild tenderness left abscess otherwise soft nontender non-distended, bowel sounds present no masses Extremities: No clubbing, cyanosis Neuro: Alert and oriented 3, cranial nerves II through XII grossly intact, no lateralizing neuro deficits Vitals: Vitals: Vital Signs Date Time Temp Pulse Resp B/P (MAP) Pulse Ox O2 Delivery O2 Flow Rate FiO2 12/22/17 10:16 98.0 69 22 154/87 (109) 96 Room Air Labs: Labs: Laboratory Tests Test 12/22/17 07:38 12/22/17 07:51 12/22/17 11:56 Glucose (Fingerstick) 214 mg/dL (70-99) 93 mg/dL (70-99) White Blood Count 8.6 x10^3/uL (4.0-11.0) Red Blood Count 3.92 x10^6/uL (4.30-5.70) Hemoglobin 12.7 g/dL (13.0-17.5) Hematocrit 36.8 % (39.0-53.0) Mean Corpuscular Volume 94 fL (79-100) Mean Corpuscular Hemoglobin 32 pg (25-35) Mean Corpuscular Hemoglobin Concent 35 g/dL (31-37) Red Cell Distribution Width 13.1 % (11.5-14.5) Platelet Count 231 x10^3/uL (140-400) Neutrophils (%) (Auto) 70 % (31-73) Lymphocytes (%) (Auto) 18 % (24-48) Monocytes (%) (Auto) 10 % (0-9) Eosinophils (%) (Auto) 2 % (0-3) Basophils (%) (Auto) 1 % (0-3) Neutrophils # (Auto) 6.0 x10^3uL (1.8-7.7) Lymphocytes # (Auto) 1.5 x10^3/uL (1.0-4.8) Monocytes # (Auto) 0.9 x10^3/uL (0.0-1.1) Eosinophils # (Auto) 0.2 x10^3/uL (0.0-0.7) Basophils # (Auto) 0.1 x10^3/uL (0.0-0.2) Sodium Level 137 mmol/L (136-145) Potassium Level 4.2 mmol/L (3.5-5.1) Chloride Level 104 mmol/L (98-107) Carbon Dioxide Level 27 mmol/L (21-32) Anion Gap 6 (6-14) Blood Urea Nitrogen 19 mg/dL (8-26) Creatinine 1.2 mg/dL (0.7-1.3) Estimated GFR (Cockcroft-Gault) 58.4 BUN/Creatinine Ratio 16 (6-20) Glucose Level 210 mg/dL (70-99) Lactic Acid Level 1.2 mmol/L (0.4-2.0) Calcium Level 8.5 mg/dL (8.5-10.1) Total Bilirubin 0.4 mg/dL (0.2-1.0) Aspartate Amino Transf (AST/SGOT) 14 U/L (15-37) Alanine Aminotransferase (ALT/SGPT) 21 U/L (16-63) Alkaline Phosphatase 72 U/L (46-116) Total Protein 7.0 g/dL (6.4-8.2) Albumin 3.2 g/dL (3.4-5.0) Albumin/Globulin Ratio 0.8 (1.0-1.7) VTE Prophylaxis: VTE Prophylaxis Devices: No VTE Pharmacological Prophylaxi: No (on OAC) Assessment/Plan: A/P: Abdominal wall skin abscess (gram + diplococci has h/o MRSA): clindamycin IV await wound culture senstivities DM2: SSI Atrial fibrillation: rate controlled continue OAC HTN, COPD, contolled with home meds Mild Malnutrition: albumin 3.2 CHLOE ESPINOZA DO Dec 22, 2017 15:56
[2017-12-22] MEDS ORDERED: MECLIZINE 12.5 MG TABLET. PO PRN (16:15)
[2017-12-22] MEDS: NEOMYCIN/POLYMYXIN/HC OTIC SUSPENSION 10ML BOTTLE. AU SCH ×2 (16:30→22:07)
[2017-12-22] MEDS: ACETAMINOPHEN 325 MG TABLET PO SCH ×2 (16:45→22:08)
[2017-12-22 16:59] VITALS: BP 164/89
[2017-12-22] MEDS: INSULIN LISPRO 300 UNITS/3 ML INSULN.PEN. SQ SCH (17:00)
[2017-12-22] MEDS: BUDESONIDE 0.5 MG/2 ML NEBU NEB SCH (20:25)
[2017-12-22] MEDS: ALBUTEROL SULFATE 2.5 MG/3 ML NEBU. NEB SCH (20:25)
[2017-12-22] MEDS ORDERED: NON FORMULARY ITEM (Mometasone/Formoterol (Dulera 200 Mcg/5 Mcg Inhaler) 2 PUFF) IH SCH (21:00)
[2017-12-22] MEDS: CLINDAMYCIN 900MG PREMIX 50 ML IV SCH (22:07)
[2017-12-22] MEDS: FAMOTIDINE 20 MG TABLET PO SCH (22:08)
[2017-12-22] MEDS: DOCUSATE SODIUM 100 MG CAPSULE PO SCH (22:08)
[2017-12-22] MEDS: METOPROLOL TART IMMED RELEASE 50 MG TABLET PO SCH (22:08)
[2017-12-22] MEDS: APIXABAN 5 MG TABLET. PO SCH (22:08)
[2017-12-22 23:55] VITALS: BP 118/58
[2017-12-23] MEDS: ALBUTEROL SULFATE 2.5 MG/3 ML NEBU. NEB SCH ×4 (05:42→20:49)
[2017-12-23] MEDS: CLINDAMYCIN 900MG PREMIX 50 ML IV SCH ×3 (06:02→21:11)
[2017-12-23 06:13] VITALS: BP 125/85
[2017-12-23 06:40] LABS: BASO % 1 % (0-3); EOS # 0.2 x10^3/uL (0.0-0.7); EOS % 3 % (0-3); HEMATOCRIT 36.6 % (39.0-53.0); HEMOGLOBIN 12.6 g/dL (13.0-17.5); LYMPH # 2.6 x10^3/uL (1.0-4.8); LYMPH % 33 % (24-48); MEAN CORPUSCULAR HEMOGLOBIN 32 pg (25-35); MEAN CORPUSCULAR HGB CONC 34 g/dL (31-37); MEAN CORPUSCULAR VOLUME 93 fL (79-100); MONO # 0.9 x10^3/uL (0.0-1.1); MONO % 11 % (0-9); NEUT % 52 % (31-73); PLATELET COUNT 222 x10^3/uL (140-400); RED BLOOD COUNT 3.92 x10^6/uL (4.30-5.70); RED CELL DISTRIBUTION WIDTH 13.1 % (11.5-14.5); WHITE BLOOD COUNT 7.7 x10^3/uL (4.0-11.0)
[2017-12-23 06:46] LABS: CALCIUM 8.7 mg/dL (8.5-10.1); CREATININE 1.2 mg/dL (0.7-1.3); GFR 58.4; POTASSIUM 4.1 mmol/L (3.5-5.1)
[2017-12-23] MEDS: ASPIRIN 81 MG TAB.CHEW PO SCH (08:33)
[2017-12-23] MEDS: DOCUSATE SODIUM 100 MG CAPSULE PO SCH ×2 (08:34→21:06)
[2017-12-23] MEDS: LACTOBACILLUS RHAMNOSUS GG 1 CAPSULE. PO SCH ×2 (08:34→21:05)
[2017-12-23] MEDS: NEOMYCIN/POLYMYXIN/HC OTIC SUSPENSION 10ML BOTTLE. AU SCH ×3 (08:34→21:00)
[2017-12-23] MEDS: APIXABAN 5 MG TABLET. PO SCH ×2 (08:34→21:06)
[2017-12-23] MEDS: ATORVASTATIN CALCIUM 20 MG TABLET PO SCH (08:35)
[2017-12-23] MEDS: METOPROLOL TART IMMED RELEASE 50 MG TABLET PO SCH ×2 (08:36→21:06)
[2017-12-23] MEDS: EZETIMIBE 10 MG TABLET PO SCH (08:36)
[2017-12-23] MEDS: FAMOTIDINE 20 MG TABLET PO SCH ×2 (08:36→21:05)
[2017-12-23] MEDS: CALCIUM CARB/VIT D3 500/200 TABLET PO SCH (08:36)
[2017-12-23] MEDS: INSULIN LISPRO 300 UNITS/3 ML INSULN.PEN. SQ SCH ×2 (08:39→17:23)
[2017-12-23] MEDS: INSULIN GLARGINE 300 UNITS/3 ML INSULN.PEN. SQ SCH (08:47)
[2017-12-23] MEDS: FUROSEMIDE 40 MG TABLET PO SCH (08:47)
[2017-12-23] MEDS: ACETAMINOPHEN 325 MG TABLET PO SCH ×4 (08:47→21:06)
[2017-12-23] MEDS: LISINOPRIL 20 MG TABLET PO SCH (09:00)
[2017-12-23] MEDS: ISOSORBIDE MONONITRATE ER 30 MG TAB.ER.24H PO SCH (09:00)
[2017-12-23] MEDS: BUDESONIDE 0.5 MG/2 ML NEBU NEB SCH ×2 (10:49→20:50)
[2017-12-23 10:51] VITALS: BP 117/55
[2017-12-23] MEDS ORDERED: DEXTROSE 50% 25 GM / 50ML DISP.SYRIN. IV PRN (14:15)
[2017-12-23 14:59] VITALS: BP 146/70
--- NOTE | 2017-12-23 15:10 | PDOC ---
Progress Note. Subjective: I find the patient sitting up in bed today, he is pleasant and without complaint. He says he has been ambulating eating/drinking well no issues, VS and labs unremarkable as below. Blood cultures no growth todate wound cultures pending. No CP/dyspnea Objective: Vital Signs: Vital Signs Date Time Temp Pulse Resp B/P (MAP) Pulse Ox O2 Delivery O2 Flow Rate FiO2 12/23/17 14:59 98.0 42 20 146/70 (95) 95 Room Air I & O: Intake and Output 12/23/17 07:00 Intake Total 2401.73 ml Balance 2401.73 ml Intake Oral 2100 ml IV Total 301.73 ml # Voids 2 Labs: Laboratory Tests Test 12/22/17 07:38 12/22/17 07:51 12/22/17 10:18 12/22/17 11:56 Glucose (Fingerstick) 214 mg/dL (70-99) 93 mg/dL (70-99) White Blood Count 8.6 x10^3/uL (4.0-11.0) Red Blood Count 3.92 x10^6/uL (4.30-5.70) Hemoglobin 12.7 g/dL (13.0-17.5) Hematocrit 36.8 % (39.0-53.0) Mean Corpuscular Volume 94 fL (79-100) Mean Corpuscular Hemoglobin 32 pg (25-35) Mean Corpuscular Hemoglobin Concent 35 g/dL (31-37) Red Cell Distribution Width 13.1 % (11.5-14.5) Platelet Count 231 x10^3/uL (140-400) Neutrophils (%) (Auto) 70 % (31-73) Lymphocytes (%) (Auto) 18 % (24-48) Monocytes (%) (Auto) 10 % (0-9) Eosinophils (%) (Auto) 2 % (0-3) Basophils (%) (Auto) 1 % (0-3) Neutrophils # (Auto) 6.0 x10^3uL (1.8-7.7) Lymphocytes # (Auto) 1.5 x10^3/uL (1.0-4.8) Monocytes # (Auto) 0.9 x10^3/uL (0.0-1.1) Eosinophils # (Auto) 0.2 x10^3/uL (0.0-0.7) Basophils # (Auto) 0.1 x10^3/uL (0.0-0.2) Sodium Level 137 mmol/L (136-145) Potassium Level 4.2 mmol/L (3.5-5.1) Chloride Level 104 mmol/L (98-107) Carbon Dioxide Level 27 mmol/L (21-32) Anion Gap 6 (6-14) Blood Urea Nitrogen 19 mg/dL (8-26) Creatinine 1.2 mg/dL (0.7-1.3) Estimated GFR (Cockcroft-Gault) 58.4 BUN/Creatinine Ratio 16 (6-20) Glucose Level 210 mg/dL (70-99) Lactic Acid Level 1.2 mmol/L (0.4-2.0) Calcium Level 8.5 mg/dL (8.5-10.1) Total Bilirubin 0.4 mg/dL (0.2-1.0) Aspartate Amino Transf (AST/SGOT) 14 U/L (15-37) Alanine Aminotransferase (ALT/SGPT) 21 U/L (16-63) Alkaline Phosphatase 72 U/L (46-116) Total Protein 7.0 g/dL (6.4-8.2) Albumin 3.2 g/dL (3.4-5.0) Albumin/Globulin Ratio 0.8 (1.0-1.7) Nasal Screen MRSA (PCR) Positive (Negative) Test 12/22/17 16:54 12/22/17 21:49 12/23/17 06:10 12/23/17 07:59 Glucose (Fingerstick) 138 mg/dL (70-99) 196 mg/dL (70-99) 180 mg/dL (70-99) White Blood Count 7.7 x10^3/uL (4.0-11.0) Red Blood Count 3.92 x10^6/uL (4.30-5.70) Hemoglobin 12.6 g/dL (13.0-17.5) Hematocrit 36.6 % (39.0-53.0) Mean Corpuscular Volume 93 fL (79-100) Mean Corpuscular Hemoglobin 32 pg (25-35) Mean Corpuscular Hemoglobin Concent 34 g/dL (31-37) Red Cell Distribution Width 13.1 % (11.5-14.5) Platelet Count 222 x10^3/uL (140-400) Neutrophils (%) (Auto) 52 % (31-73) Lymphocytes (%) (Auto) 33 % (24-48) Monocytes (%) (Auto) 11 % (0-9) Eosinophils (%) (Auto) 3 % (0-3) Basophils (%) (Auto) 1 % (0-3) Neutrophils # (Auto) 4.0 x10^3uL (1.8-7.7) Lymphocytes # (Auto) 2.6 x10^3/uL (1.0-4.8) Monocytes # (Auto) 0.9 x10^3/uL (0.0-1.1) Eosinophils # (Auto) 0.2 x10^3/uL (0.0-0.7) Basophils # (Auto) 0.0 x10^3/uL (0.0-0.2) Sodium Level 137 mmol/L (136-145) Potassium Level 4.1 mmol/L (3.5-5.1) Chloride Level 104 mmol/L (98-107) Carbon Dioxide Level 26 mmol/L (21-32) Anion Gap 7 (6-14) Blood Urea Nitrogen 18 mg/dL (8-26) Creatinine 1.2 mg/dL (0.7-1.3) Estimated GFR (Cockcroft-Gault) 58.4 Glucose Level 176 mg/dL (70-99) Calcium Level 8.7 mg/dL (8.5-10.1) Test 12/23/17 11:45 Glucose (Fingerstick) 254 mg/dL (70-99) Physical Exam: Gen.: Alert, pleasant, no apparent distress HEENT: Normocephalic atraumatic, PERRLA EOMI, no scleral icterus, oral mucosa pink and moist Neck: Supple, no lymphadenopathy, nontender Cardiovascular: Normal S1 and S2 no murmurs Pulmonary: Lungs are clear bilaterally with good air movement no respiratory distress Abdomen: sterile dressing, otherwise soft nontender non-distended, bowel sounds present no masses Extremities: No clubbing, cyanosis Neuro: Alert and oriented 3, cranial nerves II through XII grossly intact, no lateralizing neuro deficits Assessment: Abdominal wall skin abscess (gram + diplococci has h/o MRSA): clindamycin IV await wound culture senstivities DM2: SSI Atrial fibrillation: rate controlled continue OAC HTN, COPD, contolled with home meds Mild Malnutrition: albumin 3.2 Poor outpatient healthcare resources CHLOE ESPINOZA DO Dec 23, 2017 15:10
[2017-12-23 19:35] VITALS: BP 123/58
[2017-12-24] VITALS: BP 119/63
[2017-12-24] MEDS: ALBUTEROL SULFATE 2.5 MG/3 ML NEBU. NEB SCH ×4 (05:13→20:37)
[2017-12-24 05:56] VITALS: BP 138/75
[2017-12-24] MEDS: CLINDAMYCIN 900MG PREMIX 50 ML IV SCH ×3 (06:22→22:27)
[2017-12-24] MEDS: NEOMYCIN/POLYMYXIN/HC OTIC SUSPENSION 10ML BOTTLE. AU SCH ×3 (07:44→20:40)
[2017-12-24] MEDS: EZETIMIBE 10 MG TABLET PO SCH (07:45)
[2017-12-24] MEDS: DOCUSATE SODIUM 100 MG CAPSULE PO SCH ×2 (07:45→20:40)
[2017-12-24] MEDS: ACETAMINOPHEN 325 MG TABLET PO SCH ×4 (07:45→20:40)
[2017-12-24] MEDS: FAMOTIDINE 20 MG TABLET PO SCH ×2 (07:45→20:40)
[2017-12-24] MEDS: LISINOPRIL 20 MG TABLET PO SCH (07:45)
[2017-12-24] MEDS: ISOSORBIDE MONONITRATE ER 30 MG TAB.ER.24H PO SCH (07:46)
[2017-12-24] MEDS: ASPIRIN 81 MG TAB.CHEW PO SCH (07:47)
[2017-12-24] MEDS: LACTOBACILLUS RHAMNOSUS GG 1 CAPSULE. PO SCH ×2 (07:47→20:40)
[2017-12-24] MEDS: ATORVASTATIN CALCIUM 20 MG TABLET PO SCH (07:47)
[2017-12-24] MEDS: INSULIN LISPRO 300 UNITS/3 ML INSULN.PEN. SQ SCH ×4 (07:48→17:07)
[2017-12-24] MEDS: CALCIUM CARB/VIT D3 500/200 TABLET PO SCH (07:48)
[2017-12-24] MEDS: FUROSEMIDE 40 MG TABLET PO SCH (07:48)
[2017-12-24] MEDS: INSULIN GLARGINE 300 UNITS/3 ML INSULN.PEN. SQ SCH (07:50)
[2017-12-24] MEDS: BUDESONIDE 0.5 MG/2 ML NEBU NEB SCH ×3 (08:00→20:36)
[2017-12-24] MEDS: METOPROLOL TART IMMED RELEASE 50 MG TABLET PO SCH ×2 (08:28→20:40)
[2017-12-24] MEDS: APIXABAN 5 MG TABLET. PO SCH ×2 (08:43→20:40)
[2017-12-24 14:44] VITALS: BP 122/69
--- NOTE | 2017-12-24 17:52 | PDOC ---
Progress Note. Subjective: Patient reports swelling/discharge/discomfort improved. No new or worsening symptoms. VS stable, glucose remains elevated will add SSI. Continues to be CP /dyspnea free. He understands sensitivities will likely be available tomorrow and he'll be discharged, not looking forward to that as he shares a with 18 others at least half of whom smoke. His COPD symptoms become exacerbated in that environment. No new or worsening current symptoms. Objective: Vital Signs: Vital Signs Date Time Temp Pulse Resp B/P (MAP) Pulse Ox O2 Delivery O2 Flow Rate FiO2 12/24/17 15:48 95 Room Air 12/24/17 14:44 97.5 55 18 122/69 (86) I & O: Intake and Output 12/24/17 07:00 Intake Total 2270 ml Balance 2270 ml Intake Oral 2220 ml IV Total 50 ml # Voids 6 Labs: Laboratory Tests Test 12/22/17 21:49 12/23/17 06:10 12/23/17 07:59 12/23/17 11:45 Glucose (Fingerstick) 196 mg/dL (70-99) 180 mg/dL (70-99) 254 mg/dL (70-99) White Blood Count 7.7 x10^3/uL (4.0-11.0) Red Blood Count 3.92 x10^6/uL (4.30-5.70) Hemoglobin 12.6 g/dL (13.0-17.5) Hematocrit 36.6 % (39.0-53.0) Mean Corpuscular Volume 93 fL (79-100) Mean Corpuscular Hemoglobin 32 pg (25-35) Mean Corpuscular Hemoglobin Concent 34 g/dL (31-37) Red Cell Distribution Width 13.1 % (11.5-14.5) Platelet Count 222 x10^3/uL (140-400) Neutrophils (%) (Auto) 52 % (31-73) Lymphocytes (%) (Auto) 33 % (24-48) Monocytes (%) (Auto) 11 % (0-9) Eosinophils (%) (Auto) 3 % (0-3) Basophils (%) (Auto) 1 % (0-3) Neutrophils # (Auto) 4.0 x10^3uL (1.8-7.7) Lymphocytes # (Auto) 2.6 x10^3/uL (1.0-4.8) Monocytes # (Auto) 0.9 x10^3/uL (0.0-1.1) Eosinophils # (Auto) 0.2 x10^3/uL (0.0-0.7) Basophils # (Auto) 0.0 x10^3/uL (0.0-0.2) Sodium Level 137 mmol/L (136-145) Potassium Level 4.1 mmol/L (3.5-5.1) Chloride Level 104 mmol/L (98-107) Carbon Dioxide Level 26 mmol/L (21-32) Anion Gap 7 (6-14) Blood Urea Nitrogen 18 mg/dL (8-26) Creatinine 1.2 mg/dL (0.7-1.3) Estimated GFR (Cockcroft-Gault) 58.4 Glucose Level 176 mg/dL (70-99) Calcium Level 8.7 mg/dL (8.5-10.1) Test 12/23/17 16:28 12/23/17 20:58 12/24/17 06:56 12/24/17 11:42 Glucose (Fingerstick) 184 mg/dL (70-99) 161 mg/dL (70-99) 171 mg/dL (70-99) 190 mg/dL (70-99) Test 12/24/17 16:49 Glucose (Fingerstick) 184 mg/dL (70-99) Physical Exam: Gen.: Alert, pleasant, no apparent distress HEENT: Normocephalic atraumatic, PERRLA EOMI, no scleral icterus, oral mucosa pink and moist Neck: Supple, no lymphadenopathy, nontender Cardiovascular: Normal S1 and S2 no murmurs Pulmonary: Lungs are clear bilaterally with good air movement no respiratory distress Abdomen: sterile dressing appropriately tender, otherwise soft nontender non- distended, bowel sounds present no masses Extremities: No clubbing, cyanosis Neuro: Alert and oriented 3, cranial nerves II through XII grossly intact, no lateralizing neuro deficits Assessment: Abdominal wall skin abscess (gram + diplococci has h/o MRSA): clindamycin anticipate wound culture senstivities tomorrow DM2: SSI Atrial fibrillation: rate controlled continue OAC HTN, COPD, contolled with home meds Mild Malnutrition: albumin 3.2 Immunocompromised status d/t DM Poor outpatient healthcare resources In addition to appropriate antibiotics based upon anticipated sensitivities, I agreed to d/c patient with inhaler for prn use once [facility] and exposed to second hand smoke. Anticipate d/c tomorrow. CHLOE ESPINOZA DO Dec 24, 2017 17:52
[2017-12-24 19:35] VITALS: BP 133/74
[2017-12-24 23:00] VITALS: BP 104/61
[2017-12-25] MEDS: ALBUTEROL SULFATE 2.5 MG/3 ML NEBU. NEB SCH ×4 (05:31→20:00)
[2017-12-25] MEDS: CLINDAMYCIN 900MG PREMIX 50 ML IV SCH ×3 (05:39→21:44)
[2017-12-25 06:03] VITALS: BP 164/77
[2017-12-25] MEDS: ACETAMINOPHEN 325 MG TABLET PO SCH ×4 (08:15→21:29)
[2017-12-25] MEDS: LISINOPRIL 20 MG TABLET PO SCH (08:15)
[2017-12-25] MEDS: LACTOBACILLUS RHAMNOSUS GG 1 CAPSULE. PO SCH ×2 (08:15→21:29)
[2017-12-25] MEDS: FAMOTIDINE 20 MG TABLET PO SCH ×2 (08:16→21:29)
[2017-12-25] MEDS: CALCIUM CARB/VIT D3 500/200 TABLET PO SCH (08:16)
[2017-12-25] MEDS: ATORVASTATIN CALCIUM 20 MG TABLET PO SCH (08:16)
[2017-12-25] MEDS: FUROSEMIDE 40 MG TABLET PO SCH (08:16)
[2017-12-25] MEDS: EZETIMIBE 10 MG TABLET PO SCH (08:16)
[2017-12-25] MEDS: APIXABAN 5 MG TABLET. PO SCH ×2 (08:16→21:29)
[2017-12-25] MEDS: ISOSORBIDE MONONITRATE ER 30 MG TAB.ER.24H PO SCH (08:16)
[2017-12-25] MEDS: DOCUSATE SODIUM 100 MG CAPSULE PO SCH ×2 (08:16→21:30)
[2017-12-25] MEDS: ASPIRIN 81 MG TAB.CHEW PO SCH (08:17)
[2017-12-25] MEDS: METOPROLOL TART IMMED RELEASE 50 MG TABLET PO SCH (08:17)
[2017-12-25] MEDS: NEOMYCIN/POLYMYXIN/HC OTIC SUSPENSION 10ML BOTTLE. AU SCH ×3 (08:17→21:00)
[2017-12-25] MEDS: INSULIN LISPRO 300 UNITS/3 ML INSULN.PEN. SQ SCH ×4 (08:23→17:00)
[2017-12-25] MEDS: INSULIN GLARGINE 300 UNITS/3 ML INSULN.PEN. SQ SCH (08:25)
[2017-12-25 11:49] VITALS: BP 133/66
[2017-12-25] MEDS: CIPROFLOXACIN HCL 500 MG TABLET PO SCH ×2 (12:28→21:29)
[2017-12-25 15:04] VITALS: BP 114/60
[2017-12-25 19:35] VITALS: BP 150/71
[2017-12-25] MEDS: BUDESONIDE 0.5 MG/2 ML NEBU NEB SCH (20:00)
[2017-12-25] MEDS: METOPROLOL TART IMMED RELEASE 25 MG TABLET PO SCH (21:31)
[2017-12-25 22:50] VITALS: BP 125/70
--- NOTE | 2017-12-26 01:15 | PN ---
DATE: 12/25/2017 SUBJECTIVE: The patient is sitting comfortably in his chair in no apparent distress. He continued to have some discomfort in the anterior abdominal port site of the drained abscess. However, he denied any chills, rigors or fever. PHYSICAL EXAMINATION: GENERAL: When I examined him, he looked well, slightly pale, but no jaundice, cyanosis, or thyromegaly. No jugular venous distension. No limb edema. VITAL SIGNS: His heart rate was 67, blood pressure was 164/77, temperature was 97.6, respiratory rate was 18 and oxygen saturation was 95% on room air. HEAD, EYES, EARS, NOSE AND THROAT: Showed normocephalic, atraumatic. NECK: Supple. HEART: Showed normal first and second heart sounds. No gallop, rub or murmur. CHEST: Clear to auscultation. No crepitation or rhonchi. ABDOMEN: Distended, soft, nontender. He has an incised abscess on the left lower quadrant with some purulent drainage, although mostly there is induration. There is no tenderness. No guarding or rigidity. No organomegaly. All hernial orifices intact. Bowel sounds normal. NEUROLOGIC: He is awake, alert, responding appropriately. Cranial nerves are intact. He moves extremities without difficulty, ambulates without assistance or assistive devices. His intake over the last 24 hours was 2217 no output was recorded. LABORATORY DATA: His most recent lab work showed a white cell count 7700, hemoglobin 12.6, hematocrit 36, MCV 93, and platelet count of 222,000. His blood sugar is reasonably controlled. This morning, it was 171 mg/dL. Most recent chemistry showed serum sodium of 137, potassium 4.1, chloride 104, bicarbonate 26, anion gap of 7, BUN 18, creatinine 1.2. Estimated GFR was 58 mL per minute and calcium was 8.7. His wound culture has grown Staphylococcus aureus as well as Escherichia coli. The sensitivity is still pending at the time of this dictation. ASSESSMENT AND PLAN: The patient is already on clindamycin that should cover the Staphylococcus aureus; however, I will add ciprofloxacin to cover the Escherichia coli and await the result of culture and sensitivity. We will apply Iodoform gauze to prevent abscess from closing to allow it to heal from inside out and hopefully discharge him home tomorrow to continue on oral antibiotic. OLY TAMEZ MD DR: Darrel JOB#: [id number] / [id number]
[2017-12-26] MEDS: CLINDAMYCIN 900MG PREMIX 50 ML IV SCH (05:35)
[2017-12-26 05:50] VITALS: BP 135/82
[2017-12-26 06:19] LABS: BASO % 1 % (0-3); EOS # 0.3 x10^3/uL (0.0-0.7); EOS % 4 % (0-3); HEMATOCRIT 38.7 % (39.0-53.0); HEMOGLOBIN 13.2 g/dL (13.0-17.5); LYMPH # 1.7 x10^3/uL (1.0-4.8); LYMPH % 25 % (24-48); MEAN CORPUSCULAR HEMOGLOBIN 32 pg (25-35); MEAN CORPUSCULAR HGB CONC 34 g/dL (31-37); MEAN CORPUSCULAR VOLUME 94 fL (79-100); MONO # 0.7 x10^3/uL (0.0-1.1); MONO % 10 % (0-9); NEUT # 4.1 x10^3uL (1.8-7.7); NEUT % 61 % (31-73); PLATELET COUNT 233 x10^3/uL (140-400); RED BLOOD COUNT 4.13 x10^6/uL (4.30-5.70); RED CELL DISTRIBUTION WIDTH 13.3 % (11.5-14.5); WHITE BLOOD COUNT 6.8 x10^3/uL (4.0-11.0)
[2017-12-26] MEDS: BUDESONIDE 0.5 MG/2 ML NEBU NEB SCH ×2 (06:31→09:36)
[2017-12-26] MEDS: ALBUTEROL SULFATE 2.5 MG/3 ML NEBU. NEB SCH ×2 (06:31→09:36)
[2017-12-26 06:35] LABS: ALBUMIN 3.4 g/dL (3.4-5.0); ALBUMIN/GLOBULIN RATIO 0.9 (1.0-1.7); CREATININE 1.3 mg/dL (0.7-1.3); GFR 53.3; POTASSIUM 4.4 mmol/L (3.5-5.1); TOTAL BILIRUBIN 0.5 mg/dL (0.2-1.0); TOTAL PROTEIN 7.2 g/dL (6.4-8.2)
[2017-12-26] MEDS: INSULIN LISPRO 300 UNITS/3 ML INSULN.PEN. SQ SCH ×3 (08:00→11:55)
[2017-12-26] MEDS: ISOSORBIDE MONONITRATE ER 30 MG TAB.ER.24H PO SCH (08:56)
[2017-12-26] MEDS: ATORVASTATIN CALCIUM 20 MG TABLET PO SCH (08:57)
[2017-12-26] MEDS: DOCUSATE SODIUM 100 MG CAPSULE PO SCH (08:57)
[2017-12-26] MEDS: CIPROFLOXACIN HCL 500 MG TABLET PO SCH (08:57)
[2017-12-26] MEDS: EZETIMIBE 10 MG TABLET PO SCH (08:57)
[2017-12-26] MEDS: LISINOPRIL 20 MG TABLET PO SCH (08:57)
[2017-12-26] MEDS: APIXABAN 5 MG TABLET. PO SCH (08:57)
[2017-12-26] MEDS: LACTOBACILLUS RHAMNOSUS GG 1 CAPSULE. PO SCH (08:57)
[2017-12-26] MEDS: ACETAMINOPHEN 325 MG TABLET PO SCH (08:57)
[2017-12-26] MEDS: FAMOTIDINE 20 MG TABLET PO SCH (08:57)
[2017-12-26] MEDS: CALCIUM CARB/VIT D3 500/200 TABLET PO SCH (08:58)
[2017-12-26] MEDS: METOPROLOL TART IMMED RELEASE 25 MG TABLET PO SCH (08:58)
[2017-12-26] MEDS: ASPIRIN 81 MG TAB.CHEW PO SCH (08:58)
[2017-12-26] MEDS: FUROSEMIDE 40 MG TABLET PO SCH (08:58)
[2017-12-26] MEDS: NEOMYCIN/POLYMYXIN/HC OTIC SUSPENSION 10ML BOTTLE. AU SCH (08:59)
[2017-12-26] MEDS: INSULIN GLARGINE 300 UNITS/3 ML INSULN.PEN. SQ SCH (09:11)
[2017-12-26 11:25] VITALS: BP 117/70
[2017-12-26] MEDS ORDERED: CIPR500T94 PO (12:40)
[2017-12-26] MEDS ORDERED: CLIN300C8 PO (12:40)
--- NOTE | 2017-12-26 23:21 | DS ---
DATE OF DISCHARGE: 12/26/2017 HOSPITAL COURSE: The patient is a 77-year-old male patient who was admitted with abdominal wall abscess that apparently was drained in the Emergency Room. He presented to the Emergency Room with left-sided abdominal pain and was found to have skin abscess, bleeding and draining pus. However, there is no fever or other systemic signs of infection. He was admitted and was started on IV antibiotic. His abscess was incised and drained. Swabs were sent for culture and sensitivity and was continued on IV Rocephin and vancomycin and subsequently he was switched to IV clindamycin. However, the culture showed growth of 2 organisms. One is methicillin-resistant Staphylococcus aureus sensitive to clindamycin and Escherichia coli sensitive to ciprofloxacin. The patient was continued on IV clindamycin and was started on oral Cipro 500 mg twice a day. He was seen today by the wound care team and his dressing was changed and they recommended changing the dressing every 3 days and therefore a decision was made to discharge him back to [facility] [place] to continue with oral clindamycin and ciprofloxacin and to come as an outpatient for dressing changes every 3 days. PHYSICAL EXAMINATION: GENERAL: When I saw him today, he was sitting comfortably in his chair in no apparent distress. On questioning him, he denied any complaint. In particular, denied any abdominal wall pain. Denied any chills, rigors, or fever. When I examined him, he looked pale, but no jaundice, cyanosis, or thyromegaly. No jugular venous distention. No limb edema. VITAL SIGNS: His heart rate was 60, blood pressure was 117/70, his temperature was 97.8, respiratory rate was 18, and oxygen saturation was 94% on room air. HEAD, EYES, EARS, NOSE AND THROAT: Normocephalic, atraumatic. NECK: Supple. HEART: Showed normal first and second heart sounds. No gallop, rub, or murmur. CHEST: Clear to auscultation. No crepitation or rhonchi. ABDOMEN: Distended, soft, nontender. No guarding or rigidity. No organomegaly. Hernial orifice intact. Bowel sounds normal. The wound in the left lower quadrant is covered with dressing. NEUROLOGIC: He was awake, alert, responding appropriately. Cranial nerves intact. He moves extremities without difficulty, ambulates without assistance or assistive devices. His intake over the last 24 hours was 1850, no output was recorded. LABORATORY DATA: His lab work as of this morning showed a white cell count of 6800, hemoglobin 13, hematocrit 39, MCV 94, platelet count 233,000. His chemistry this morning showed a serum sodium 136, potassium 4.4, chloride 100, bicarbonate 29, anion gap of 7, BUN of 19, creatinine 1.3, estimated GFR was 53 mL per minute, glucose 163, calcium was 9. Total bilirubin, AST, ALT, alkaline phosphatase were normal. Total protein was 7.2, albumin was 3.4. His wound culture showed growth of methicillin-resistant Staphylococcus aureus sensitive to clindamycin and Escherichia coli sensitive to ciprofloxacin. DISCHARGE MEDICATIONS: The patient was discharged back to nursing home house to continue on clindamycin 300 mg 3 times a day for 10 days and Cipro 500 mg twice a day for 10 days. He should continue on ranitidine 150 mg twice a day, nitroglycerin 0.4 mg sublingually as needed, neomycin, polymyxin ear suspension 4 drops to each ear 3 times a day. He is on Dulera 2 puffs twice a day, metoprolol tartrate 50 mg twice a day, meclizine 25 mg twice a day, lisinopril 40 mg once a day, isosorbide mononitrate 30 mg once a day, insulin Lantus 15 units at bedtime, NovoLog insulin 5 units subcutaneously before meals, furosemide 40 mg once a day, Zetia 10 mg daily, Colace 100 mg twice a day, carbamide peroxide 15 mL OTC to both ears, calcium carbonate with vitamin D one tablet once a day, atorvastatin calcium 80 mg at bedtime, aspirin 81 mg once a day, apixaban 5 mg twice a day, Tylenol 650 mg 4 times a day. He should come as an outpatient every 3 days to have his dressing changed. FINAL DISCHARGE DIAGNOSES: Abdominal wall abscess, status post incision and drainage. Culture showed growth of methicillin-resistant Staphylococcus aureus and Escherichia coli for which he was discharged home on ciprofloxacin as well as clindamycin. The patient has multiple other medical problems including atrial fibrillation, rate controlled, well anticoagulated; type 2 diabetes, on NovoLog and Lantus insulin; hypertension, well controlled; chronic obstructive pulmonary disease. OLY TAMEZ MD DR: MYRANDA/negrita JOB#: [id number] / [id number]
== END 2017-12-26 13:13 | DRG 603 ==
LOC: ER 06:58 → 1 SOUTH 09:01
PROVIDERS: ADMIT Neuromusculoskeletal Medicine & OMM; ATTEND Neuromusculoskeletal Medicine & OMM
PROC: 0H97XZZ Drainage of Abdomen Skin, External Approach (ICD-10-PCS; principal; 2017-12-22)
DX: L02.211 Cutaneous abscess of abdominal wall (principal); E44.1 Mild protein-calorie malnutrition; Z68.41 Body mass index [BMI] 40.0-44.9, adult; L03.119 Cellulitis of unspecified part of limb; B95.62 Methicillin resistant Staphylococcus aureus infection as the cause of diseases classified elsewhere; D89.9 Disorder involving the immune mechanism, unspecified; E11.9 Type 2 diabetes mellitus without complications; E66.01 Morbid (severe) obesity due to excess calories; I11.0 Hypertensive heart disease with heart failure; I48.91 Unspecified atrial fibrillation; I50.9 Heart failure, unspecified; B96.20 Unspecified Escherichia coli [E. coli] as the cause of diseases classified elsewhere; J44.9 Chronic obstructive pulmonary disease, unspecified; Z77.22 Contact with and (suspected) exposure to environmental tobacco smoke (acute) (chronic); Z95.1 Presence of aortocoronary bypass graft; Z79.899 Other long term (current) drug therapy; Z88.0 Allergy status to penicillin; Z86.14 Personal history of Methicillin resistant Staphylococcus aureus infection
CPT/HCPCS: 10060; 36415; 80048; 80053; 82947; 83605; 85025; 87040; 87070; 87186; 87641; 94640; J0696; J1815; J3370; J3490; J7040; J7613; J7626; 99285-25

== ENCOUNTER 2018-01-03 13:15 | Inpatient (IN) | payer OTHER ==
[~2018-01-03] VITALS: Ht 182.9 cm; Wt 143.6 kg
[~2018-01-03 13:15] MED LIST changes: +APIX5TAB3 PO; +CIPR500T94 PO; +CLIN300C8 PO; +EZET10TA18 PO
[2018-01-03] MEDS ORDERED: IV NORMAL SALINE 500ML 500 ML IV ONE (14:45)
[2018-01-03 14:47] LABS: BACTERIA,URINE MANY /HPF (0-FEW); BILIRUBIN,URINE NEG (NEG); CLARITY,URINE CLOUDY; COLOR,URINE YELLOW; GLUCOSE,URINE NEG (NEG); NITRITE,URINE NEG (NEG); RBC,URINE OCC /HPF (0-2); SQUAMOUS EPITHELIAL CELL,UR OCC /LPF; UROBILINOGEN,URINE 0.2 mg/dL (0.2 mg/dL); WBC,URINE 20-40 /HPF (0-4)
--- NOTE | 2018-01-03 14:58 | RAD ---
CHEST AP ONLY dated 01/03/2018 2:07 PM. Comparison: 12/13/2017 Clinical Indication: DIZZY, SHORT OF BREATH. Findings: Single upright portable exam performed. Heart and mediastinal contours are stable. Patient is status post median sternotomy. Lungs are clear without focal consolidation. Vascular interstitium within normal limits and no pleural effusion or pneumothorax. Impression: No acute radiographic abnormality. Stable findings compared to 12/13/2017. Electronically signed by: German Jarquin MD (01/03/2018 2:56 PM) [id number]
[2018-01-03 15:01] LABS: BASO % 0 % (0-3); EOS % 0 % (0-3); HEMATOCRIT 38.3 % (39.0-53.0); HEMOGLOBIN 12.9 g/dL (13.0-17.5); LYMPH # 1.5 x10^3/uL (1.0-4.8); LYMPH % 8 % (24-48); MEAN CORPUSCULAR HEMOGLOBIN 32 pg (25-35); MEAN CORPUSCULAR HGB CONC 34 g/dL (31-37); MEAN CORPUSCULAR VOLUME 94 fL (79-100); MONO # 1.6 x10^3/uL (0.0-1.1); MONO % 9 % (0-9); NEUT # 15.3 x10^3uL (1.8-7.7); NEUT % 83 % (31-73); PLATELET COUNT 198 x10^3/uL (140-400); RED BLOOD COUNT 4.08 x10^6/uL (4.30-5.70); RED CELL DISTRIBUTION WIDTH 13.2 % (11.5-14.5); WHITE BLOOD COUNT 18.4 x10^3/uL (4.0-11.0)
[2018-01-03 15:16] LABS: ALBUMIN 3.2 g/dL (3.4-5.0); ALBUMIN/GLOBULIN RATIO 0.8 (1.0-1.7); CALCIUM 8.5 mg/dL (8.5-10.1); CREATININE 1.2 mg/dL (0.7-1.3); GFR 58.4; POTASSIUM 3.8 mmol/L (3.5-5.1); TOTAL BILIRUBIN 1.2 mg/dL (0.2-1.0); TOTAL PROTEIN 7.2 g/dL (6.4-8.2)
[2018-01-03 15:29] LABS: % BANDS 3 % (0-9); % LYMPHS 5 % (24-48); % MONOS 5 % (0-10); % SEGS 87 % (35-66); PLT ESTIMATE ADEQUATE (ADEQUATE)
--- NOTE | 2018-01-03 15:55 | PHYS DOC ---
Past History Past Medical History: A-Fib, CHF, COPD, Hypertension Past Surgical History: Coronary Bypass Surgery Alcohol Use: None Drug Use: None Adult General Chief Complaint Chief Complaint: URINARY FREQUENCY HPI HPI 77-year-old male presents with urinary frequency. Patient states he's had the symptoms for 2 days and getting worse. He feels it is to urinate and is unable to get to the bathroom before he goes. He also states that he has had some chills at home, but has not measured a fever. He had an episode of loose stool. He denies vomiting. He denies chest pain or diaphoresis. He has had some intermittent dizziness which he describes as a lightheaded feeling. Review of Systems Review of Systems Constitutional: Chills [] Eyes: Denies change in visual acuity, redness, or eye pain [] HENT: Denies nasal congestion or sore throat [] Respiratory: Denies cough or shortness of breath [] Cardiovascular: No additional information not addressed in HPI [] GI: Denies abdominal pain, nausea, vomiting, bloody stools or diarrhea [] : Increased urinary frequency[] Musculoskeletal: Denies back pain or joint pain [] Integument: Denies rash or skin lesions [] Neurologic: Denies headache, focal weakness or sensory changes [] Endocrine: Denies polyuria or polydipsia [] All other systems were reviewed and found to be within normal limits, except as documented in this note. Current Medications Current Medications Current Medications Medications (Trade) Dose Ordered Sig/Jada Start Time Stop Time Status Last Admin Dose Admin Sodium Chloride 500 ml @ 0 mls/hr 1X ONCE 01/03/18 14:45 01/03/18 14:53 DC 01/03/18 15:10 1,000 MLS/HR Allergies Allergies Allergies Coded Allergies Type Severity Reaction Last Updated Verified Penicillins Allergy Intermediate 12/13/17 Yes I S O L A T I O N *CONTACT* Allergy Unknown 12/25/17 Yes Physical Exam Physical Exam Constitutional: Well developed, obese, well nourished, no acute distress, non- toxic appearance. [] HENT: Normocephalic, atraumatic, bilateral external ears normal, oropharynx moist, no oral exudates, nose normal. [] Eyes: PERRLA, EOMI, conjunctiva normal, no discharge. [] Neck: Normal range of motion, no tenderness, supple, no stridor. [] Cardiovascular:Heart rate regular rhythm, no murmur [] Lungs & Thorax: Bilateral breath sounds clear to auscultation [] Abdomen: Bowel sounds normal, soft, no tenderness, no masses, no pulsatile masses. [] Skin: Warm, dry, no erythema, no rash. [] Back: No tenderness, no CVA tenderness. [] Extremities: No tenderness, no cyanosis, no clubbing, ROM intact, no edema. [] Neurologic: Alert and oriented X 3, normal motor function, normal sensory function, no focal deficits noted. [] Psychologic: Affect normal, judgement normal, mood normal. [] Current Patient Data Vital Signs Vital Signs Date Time Temp Pulse Resp B/P (MAP) Pulse Ox O2 Delivery O2 Flow Rate FiO2 01/03/18 15:00 70 18 153/68 (96) 97 Room Air 01/03/18 13:20 98.5 Lab Results Laboratory Tests Test 01/03/18 14:02 01/03/18 14:43 Urine Collection Type Unknown Urine Color Yellow Urine Clarity Cloudy Urine pH 6.0 Urine Specific [place] 1.010 Urine Protein 100 mg/dl (NEG-TRACE) Urine Glucose (UA) Neg mg/dL (NEG) Urine Ketones (Stick) Neg mg/dL (NEG) Urine Blood Trace (NEG) Urine Nitrite Neg (NEG) Urine Bilirubin Neg (NEG) Urine Urobilinogen Dipstick 0.2 mg/dL (0.2 mg/dL) Urine Leukocyte Esterase Trace (NEG) Urine RBC Occ /HPF (0-2) Urine WBC 20-40 /HPF (0-4) Urine Squamous Epithelial Cells Occ /LPF Urine Bacteria Many /HPF (0-FEW) White Blood Count 18.4 x10^3/uL (4.0-11.0) H Red Blood Count 4.08 x10^6/uL (4.30-5.70) L Hemoglobin 12.9 g/dL (13.0-17.5) L Hematocrit 38.3 % (39.0-53.0) L Mean Corpuscular Volume 94 fL (79-100) Mean Corpuscular Hemoglobin 32 pg (25-35) Mean Corpuscular Hemoglobin Concent 34 g/dL (31-37) Red Cell Distribution Width 13.2 % (11.5-14.5) Platelet Count 198 x10^3/uL (140-400) Neutrophils (%) (Auto) 83 % (31-73) H Lymphocytes (%) (Auto) 8 % (24-48) L Monocytes (%) (Auto) 9 % (0-9) Eosinophils (%) (Auto) 0 % (0-3) Basophils (%) (Auto) 0 % (0-3) Neutrophils # (Auto) 15.3 x10^3uL (1.8-7.7) H Lymphocytes # (Auto) 1.5 x10^3/uL (1.0-4.8) Monocytes # (Auto) 1.6 x10^3/uL (0.0-1.1) H Eosinophils # (Auto) 0.0 x10^3/uL (0.0-0.7) Basophils # (Auto) 0.0 x10^3/uL (0.0-0.2) Segmented Neutrophils % 87 % (35-66) H Band Neutrophils % 3 % (0-9) Lymphocytes % 5 % (24-48) L Monocytes % 5 % (0-10) Platelet Estimate Adequate (ADEQUATE) Sodium Level 135 mmol/L (136-145) L Potassium Level 3.8 mmol/L (3.5-5.1) Chloride Level 98 mmol/L (98-107) Carbon Dioxide Level 28 mmol/L (21-32) Anion Gap 9 (6-14) Blood Urea Nitrogen 15 mg/dL (8-26) Creatinine 1.2 mg/dL (0.7-1.3) Estimated GFR (Cockcroft-Gault) 58.4 BUN/Creatinine Ratio 13 (6-20) Glucose Level 166 mg/dL (70-99) H Calcium Level 8.5 mg/dL (8.5-10.1) Total Bilirubin 1.2 mg/dL (0.2-1.0) H Aspartate Amino Transferase (AST) 17 U/L (15-37) Alanine Aminotransferase (ALT) 25 U/L (16-63) Alkaline Phosphatase 76 U/L (46-116) Troponin I Quantitative < 0.017 ng/mL (0-0.055) Total Protein 7.2 g/dL (6.4-8.2) Albumin 3.2 g/dL (3.4-5.0) L Albumin/Globulin Ratio 0.8 (1.0-1.7) L EKG EKG Irregular rhythm, rate 70, left axis deviation, no ST elevations or depressions. [] Radiology/Procedures Radiology/Procedures [] Impressions: CHEST AP ONLY dated 01/03/2018 2:07 PM. Comparison: 12/13/2017 Clinical Indication: DIZZY, SHORT OF BREATH. Findings: Single upright portable exam performed. Heart and mediastinal contours are stable. Patient is status post median sternotomy. Lungs are clear without focal consolidation. Vascular interstitium within normal limits and no pleural effusion or pneumothorax. Impression: No acute radiographic abnormality. Stable findings compared to 12/13/2017. Electronically signed by: German Jarquin MD (01/03/2018 2:56 PM) [facility] DICTATED AND SIGNED BY: GERMAN JARQUIN MD DATE: 01/03/18 1455 CC: CHARLENE LOCKWOOD DO; CHLOE ESPINOZA DO ~ Course & Med Decision Making Course & Med Decision Making Pertinent Labs and Imaging studies reviewed. (See chart for details) His chest x-ray is unremarkable. His EKG is negative for acute findings. The patient's labs are significant for an elevated white count with a left shift. His urinalysis is positive for infection. I will treat her with 1 g Rocephin in the ED. I discussed the patient with Dr. Espinoza and he has accepted the patient for admission for further antibiotics. [] Dragon Disclaimer Dragon Disclaimer This electronic medical record was generated, in whole or in part, using a voice recognition dictation system. Departure Departure: Referrals: CHLOE ESPINOZA DO (PCP) CHARLENE LOCKWOOD DO Jan 03, 2018 15:55
[2018-01-03] MEDS ORDERED: cefTRIAXone SODIUM 1 GM VIAL IV ONE (16:24)
[2018-01-03] MEDS ORDERED: IV NORMAL SALINE 50ML 50 ML ONE (16:24)
--- NOTE | 2018-01-03 18:18 | NUR ---
The patient, ALLEN CRAWFORD, 77 y/o, M admitted by CHLOE ESPINOZA DO, was given written information regarding hospital policies, unit procedures and contact persons. Patient admitted to room 113 from the ED and arrived at approx. 1735 via EMS. Valuables were checked and left in room with patient. Vital signs assessed and patient oriented to the room.
[2018-01-03 18:29] VITALS: BP 153/68
--- NOTE | 2018-01-03 19:02 | NUR ---
Dr. Taylor paged and call back received. Notified of patient arrival to unit and status. Will place orders.
[2018-01-03 19:44] VITALS: BP 160/73
[2018-01-03] MEDS ORDERED: ACETAMINOPHEN 325 MG TABLET PO PRN (20:30)
[2018-01-03] MEDS: DOCUSATE SODIUM 100 MG CAPSULE PO SCH (21:00)
[2018-01-03] MEDS ORDERED: MECLIZINE 12.5 MG TABLET. PO PRN (21:00)
[2018-01-03] MEDS ORDERED: NON FORMULARY ITEM (Mometasone/Formoterol (Dulera 200 Mcg/5 Mcg Inhaler) 2 PUFF) IH SCH (21:00)
[2018-01-03] MEDS: CLINDAMYCIN HCL 150 MG CAPSULE PO SCH (21:34)
[2018-01-03] MEDS: APIXABAN 5 MG TABLET. PO SCH (21:34)
[2018-01-03] MEDS: METOPROLOL TART IMMED RELEASE 50 MG TABLET PO SCH (21:34)
[2018-01-03] MEDS: CIPROFLOXACIN HCL 500 MG TABLET PO SCH (21:34)
[2018-01-03] MEDS: LACTOBACILLUS RHAMNOSUS GG 1 CAPSULE. PO SCH (21:34)
[2018-01-03] MEDS: FAMOTIDINE 20 MG TABLET PO SCH (21:35)
[2018-01-03 23:58] VITALS: BP 122/61
[2018-01-04 05:04] VITALS: BP 144/77
[2018-01-04] MEDS ORDERED: IPRATRPIUM/ALBUTEROL 0.5/2.5MG 3 ML NEBU. ONE (05:33)
[2018-01-04] MEDS: CIPROFLOXACIN HCL 500 MG TABLET PO SCH ×2 (05:45→17:23)
[2018-01-04] MEDS ORDERED: ALBUTEROL SULFATE 2.5 MG/3 ML NEBU. ONE (05:48)
[2018-01-04] MEDS: ALBUTEROL SULFATE 2.5 MG/3 ML NEBU. NEB SCH ×3 (05:50→15:38)
[2018-01-04 06:00] LABS: BASO % 0 % (0-3); EOS # 0.1 x10^3/uL (0.0-0.7); EOS % 0 % (0-3); HEMATOCRIT 36.5 % (39.0-53.0); HEMOGLOBIN 12.2 g/dL (13.0-17.5); LYMPH # 1.1 x10^3/uL (1.0-4.8); LYMPH % 8 % (24-48); MEAN CORPUSCULAR HEMOGLOBIN 32 pg (25-35); MEAN CORPUSCULAR HGB CONC 33 g/dL (31-37); MEAN CORPUSCULAR VOLUME 94 fL (79-100); MONO # 1.2 x10^3/uL (0.0-1.1); MONO % 8 % (0-9); NEUT % 83 % (31-73); PLATELET COUNT 185 x10^3/uL (140-400); RED BLOOD COUNT 3.87 x10^6/uL (4.30-5.70); RED CELL DISTRIBUTION WIDTH 13.6 % (11.5-14.5); WHITE BLOOD COUNT 14.4 x10^3/uL (4.0-11.0)
[2018-01-04 06:08] LABS: CALCIUM 8.3 mg/dL (8.5-10.1); CREATININE 1.2 mg/dL (0.7-1.3); GFR 58.4; POTASSIUM 3.8 mmol/L (3.5-5.1)
[2018-01-04] MEDS ORDERED: BUDESONIDE 0.5 MG/2 ML NEBU NEB SCH (08:00)
[2018-01-04] MEDS ORDERED: INSULIN LISPRO 300 UNITS/3 ML INSULN.PEN. SQ SCH (08:00)
[2018-01-04] MEDS: LACTOBACILLUS RHAMNOSUS GG 1 CAPSULE. PO SCH (08:10)
[2018-01-04] MEDS: APIXABAN 5 MG TABLET. PO SCH (08:11)
[2018-01-04] MEDS: CLINDAMYCIN HCL 150 MG CAPSULE PO SCH ×2 (08:11→15:25)
[2018-01-04] MEDS: FAMOTIDINE 20 MG TABLET PO SCH (08:11)
[2018-01-04] MEDS: METOPROLOL TART IMMED RELEASE 50 MG TABLET PO SCH (08:11)
[2018-01-04] MEDS: DOCUSATE SODIUM 100 MG CAPSULE PO SCH (08:12)
--- NOTE | 2018-01-04 08:34 | NUR ---
IP: patient has hx of +MRSA abscess 12/22/17, requires contact precautions until 2 negative results 7 days apart.
[2018-01-04] MEDS ORDERED: ASPIRIN 81 MG TAB.CHEW PO SCH (09:00)
[2018-01-04] MEDS ORDERED: CALCIUM CARB/VIT D3 500/200 TABLET PO SCH (09:00)
[2018-01-04] MEDS ORDERED: INSULIN GLARGINE 300 UNITS/3 ML INSULN.PEN. SQ SCH (09:00)
[2018-01-04] MEDS ORDERED: ISOSORBIDE MONONITRATE ER 30 MG TAB.ER.24H PO SCH (09:00)
[2018-01-04] MEDS ORDERED: EZETIMIBE 10 MG TABLET PO SCH (09:00)
[2018-01-04] MEDS ORDERED: FUROSEMIDE 40 MG TABLET PO SCH (09:00)
[2018-01-04] MEDS ORDERED: LISINOPRIL 20 MG TABLET PO SCH (09:00)
[2018-01-04] MEDS ORDERED: ATORVASTATIN CALCIUM 20 MG TABLET PO SCH (09:00)
[2018-01-04 10:37] VITALS: BP 122/62
[2018-01-04 14:46] VITALS: BP 176/61
--- NOTE | 2018-01-04 15:47 | PDOC1 ---
History of Present Illness History of Present Illness Patient presented to the emergency department with a 2 day history of urinary frequency and urgency and was found to have a UTI. Due to leukocytosis of 18, 000 and his recent illnesses the emergency department physician felt it prudent to admit the patient for observation as he felt the patient might be early urosepsis. Patient was discharged just a few days ago after being treated for an abdominal skin abscess and was taking Cipro and clindamycin at the time he developed this urinary tract infection as well. I find the patient sitting up in the chair in his room in no apparent distress. He is my clinic patient and I have cared for him in the hospital in the past as well. He says he is feeling much better and cannot wait to get back up to [place] and reunite with family members he hasn't seen in over a decade. He says they have purchased him a mobile home that he can use for ice fishing this winter. Has to be discharged back to the [facility] where he is being released and placed on a bus to go home. I discussed with him the peculiarity of developing this UTI while on antibiotics. I strongly encouraged him to see a doctor immediately and have him follow-up on urine culture report from the ED as it's very suspicious he developed this infection while taking clindamycin and Cipro. Likely needs workup for an immune deficiency as well. Chief Complaint: URINARY FREQUENCY Allergies: Coded Allergies: Penicillins (Verified Allergy, Intermediate, 12/13/17) I S O L A T I O N *CONTACT* (Verified Allergy, Unknown, 12/25/17) +MRSA nares 12/22/2017 Past Medical History Cardiac: AFIB, CHF, HTN Pulmonary: COPD Musculoskeletal: Swelling Past Surgical History: No pertinent history Past Social History Smoke: Quit Alcohol: none Drugs: None Domestic Violence: Neg Review of Systems Review Of Systems Fourteen system , review of systems has been reviewed. See HPI for pertinent positives and negative responses, other graham all other systems are negative, non pertinent or non contributory Constitutional: No: Fever, Chills ENT: No: Ear pain, Ear discharge Respiratory: No: Cough, Shortness of breath Cardiovascular: No: Chest Pain, Palpitations Gastrointestinal: No: Nausea, Vomiting, Abdominal Pain Genitourinary: YES: Other Musculoskeletal: YES: Swelling In: (legs) SKIN: YES: Other (healing left-sided abdominal skin abscess and cellulitis) Medications Current Medications Sodium Chloride 500 ml @ 0 mls/hr 1X ONCE IV Last administered on 01/03/18at 15 :10; Start 01/03/18 at 14:45; Stop 01/03/18 at 14:53; Status DC Ceftriaxone Sodium 1 gm/ Sodium Chloride 50 ml @ 100 mls/hr 1X ONCE IV Last administered on 01/03/18at 16:28; Start 01/03/18 at 16:00; Stop 01/03/18 at 16:29 ; Status DC Sodium Chloride 50 ml @ As Directed STK-MED ONCE .ROUTE ; Start 01/03/18 at 16: 24; Stop 01/03/18 at 16:25; Status DC Ceftriaxone Sodium (Rocephin) 1 gm STK-MED ONCE IV ; Start 01/03/18 at 16:24; Stop 01/03/18 at 16:25; Status DC Acetaminophen (Tylenol) 650 mg PRN Q6HRS PRN PO PAIN / TEMP; Start 01/03/18 at 20:30 Calcium/Vitamin D (Oscal D 500mg/ 200uts) 1 tab DAILY PO Last administered on 01/04/18at 08:11; Start 01/04/18 at 09:00 Insulin Glargine (Lantus) 15 units DAILY SQ Last administered on 01/04/18at 08: 20; Start 01/04/18 at 09:00 Isosorbide Mononitrate (Imdur) 30 mg DAILY PO Last administered on 01/04/18at 08 :10; Start 01/04/18 at 09:00 Apixaban (Eliquis) 5 mg BID PO Last administered on 01/04/18at 08:11; Start 01/03/18 at 21:00 Aspirin (Children'S Aspirin) 81 mg DAILY PO Last administered on 01/04/18at 08: 11; Start 01/04/18 at 09:00 Atorvastatin Calcium (Lipitor) 80 mg DAILY PO Last administered on 01/04/18at 08 :10; Start 01/04/18 at 09:00 Ciprofloxacin (Cipro) 500 mg [id number] PO Last administered on 01/04/18at 05:45; Start 01/03/18 at 21:00 Clindamycin HCl (Cleocin) 300 mg TID PO Last administered on 01/04/18 15:25; Start 01/03/18 at 21:00 Docusate Sodium (Colace) 100 mg BID PO Last administered on 01/04/18 08:12; Start 01/03/18 at 21:00 EZETIMIBE (Zetia) 10 mg DAILY PO Last administered on 01/04/18 08:12; Start 01/04/18 at 09:00 Furosemide (Lasix) 40 mg DAILY PO Last administered on 01/04/18 08:11; Start 01/04/18 at 09:00 Insulin Human Lispro (HumaLOG) 5 units [id number] SQ Last administered on 08:21; Start 01/04/18 at 08:00 Lisinopril (Prinivil) 40 mg DAILY PO Last administered on 01/04/18 08:10; Start 01/04/18 at 09:00 Meclizine HCl (Antivert) 25 mg PRN BID PRN PO DIZZINESS; Start 01/03/18 at 21: 00 Metoprolol Tartrate (Lopressor) 50 mg BID PO Last administered on 01/04/18 08: 11; Start 01/03/18 at 21:00 Non-Formulary Medication (Mometasone/ Formoterol (Dulera 200 Mcg/5 Mcg Inhaler) ) 2 puff BID IH ; Start 01/03/18 at 21:00; Status UNV Famotidine (Pepcid) 20 mg BID PO Last administered on 01/04/18 08:11; Start 01/03/18 at 21:00 Albuterol Sulfate (Ventolin) 2.5 mg RTQID NEB Last administered on 01/04/18 15 :38; Start 01/04/18 at 08:00 Budesonide (Pulmicort) 0.5 mg RTBID NEB Last administered on 01/04/18 09:32; Start 01/04/18 at 08:00 Lactobacillus Rhamnosus (Culturelle) 1 cap BID PO Last administered on 08:10; Start 01/03/18 at 21:00 Albuterol/ Ipratropium (Duoneb) 3 ml STK-MED ONCE .ROUTE ; Start 01/04/18 at 05: 33; Stop 01/04/18 at 05:34; Status DC Albuterol Sulfate (Ventolin) 2.5 mg STK-MED ONCE .ROUTE ; Start 01/04/18 at 05: 48; Stop 01/04/18 at 05:49; Status DC Active Scripts Active Cipro (Ciprofloxacin Hcl) 500 Mg Tablet 1 Tab PO BID Clindamycin Hcl 300 Mg Capsule 1 Cap PO TID Reported Eliquis (Apixaban) 5 Mg Tablet 5 Mg PO BID Zetia (Ezetimibe) 10 Mg Tablet 1 Tab PO DAILY Novolog (Insulin Aspart) 100 Unit/1 Ml Vial 5 Unit SQ DAILY Lantus Solostar (Insulin Glargine,Hum.rec.anlog) 100 Unit/1 Ml Insuln.pen 15 Unit SQ DAILY Ranitidine Hcl 150 Mg Tablet 1 Tab PO BID NITROGLYCERIN SubLingual (Nitroglycerin) 0.4 Mg Tab.subl 1 Tab SL UD Dulera 200 Mcg/5 Mcg Inhaler (Mometasone/Formoterol) 13 Gm Hfa.aer.ad 2 Puff IH BID Metoprolol Tartrate 50 Mg Tablet 1 Tab PO BID Meclizine Hcl 25 Mg Tablet 25 Mg PO BID PRN Lisinopril 40 Mg Tablet 1 Tab PO DAILY Isosorbide Mononitrate Er (Isosorbide Mononitrate) 30 Mg Tab.er.24h 1 Tab PO DAILY Furosemide 40 Mg Tablet 1 Tab PO DAILY Docusate Sodium 100 Mg Capsule 1 Cap PO BID Calcium 500 + Vit D 200 Tablet (Calcium Carbonate/Vitamin D3) 1 Each Tablet 1 Each PO DAILY Atorvastatin Calcium 80 Mg Tablet 1 Tab PO DAILY Aspirin 81 Mg Tab.chew 81 Mg PO DAILY Tylenol (Acetaminophen) 325 Mg Tablet 1-2 Tab PO QID Exam Vital Signs Vital Signs Date Time Temp Pulse Resp B/P (MAP) Pulse Ox O2 Delivery O2 Flow Rate FiO2 01/04/18 14:46 98.9 69 20 176/61 (99) 95 Room Air General Appearance: Alert, Oriented X3, Cooperative HEENT: Atraumatic, EOMI, Mucous membr. moist/pink Respiratory: Clear to auscultation, Normal air movement Heart: No murmurs Abdominal: Normal bowel sounds, Soft, No tenderness (no CVA tenderness) Assessment/Plan Assessment/Plan UTI Healing left-sided abdominal skin abscess and cellulitis Recently diagnosed atrial fibrillation Chronic lower extremity edema Follow-up immediately with a doctor as discussed above. Continue current medications per discharge instructions. COURSE Allergies Coded Allergies Type Severity Reaction Last Updated Verified Penicillins Allergy Intermediate 12/13/17 Yes I S O L A T I O N *CONTACT* Allergy Unknown 12/25/17 Yes Laboratory Tests Test 01/04/18 05:42 01/04/18 07:30 01/04/18 11:20 White Blood Count 14.4 x10^3/uL (4.0-11.0) Red Blood Count 3.87 x10^6/uL (4.30-5.70) Hemoglobin 12.2 g/dL (13.0-17.5) Hematocrit 36.5 % (39.0-53.0) Mean Corpuscular Volume 94 fL (79-100) Mean Corpuscular Hemoglobin 32 pg (25-35) Mean Corpuscular Hemoglobin Concent 33 g/dL (31-37) Red Cell Distribution Width 13.6 % (11.5-14.5) Platelet Count 185 x10^3/uL (140-400) Neutrophils (%) (Auto) 83 % (31-73) Lymphocytes (%) (Auto) 8 % (24-48) Monocytes (%) (Auto) 8 % (0-9) Eosinophils (%) (Auto) 0 % (0-3) Basophils (%) (Auto) 0 % (0-3) Neutrophils # (Auto) 12.0 x10^3uL (1.8-7.7) Lymphocytes # (Auto) 1.1 x10^3/uL (1.0-4.8) Monocytes # (Auto) 1.2 x10^3/uL (0.0-1.1) Eosinophils # (Auto) 0.1 x10^3/uL (0.0-0.7) Basophils # (Auto) 0.0 x10^3/uL (0.0-0.2) Sodium Level 134 mmol/L (136-145) Potassium Level 3.8 mmol/L (3.5-5.1) Chloride Level 98 mmol/L (98-107) Carbon Dioxide Level 28 mmol/L (21-32) Anion Gap 8 (6-14) Blood Urea Nitrogen 16 mg/dL (8-26) Creatinine 1.2 mg/dL (0.7-1.3) Estimated GFR (Cockcroft-Gault) 58.4 Glucose Level 202 mg/dL (70-99) Calcium Level 8.3 mg/dL (8.5-10.1) Glucose (Fingerstick) 164 mg/dL (70-99) 176 mg/dL (70-99) Current Medications Medications (Trade) Dose Ordered Sig/Jada Route PRN Reason Start Time Stop Time Status Last Admin Dose Admin Ceftriaxone Sodium 1 gm/ Sodium Chloride 50 ml @ 100 mls/hr 1X ONCE IV 01/03/18 16:00 01/03/18 16:29 DC 01/03/18 16:28 Sodium Chloride 50 ml @ As Directed STK-MED ONCE .ROUTE 01/03/18 16:24 01/03/18 16:25 DC Ceftriaxone Sodium (Rocephin) 1 gm STK-MED ONCE IV 01/03/18 16:24 01/03/18 16:25 DC Acetaminophen (Tylenol) 650 mg PRN Q6HRS PRN PO PAIN / TEMP 01/03/18 20:30 Calcium/Vitamin D (Oscal D 500mg/ 200uts) 1 tab DAILY PO 01/04/18 09:00 01/04/18 08:11 Insulin Glargine (Lantus) 15 units DAILY SQ 01/04/18 09:00 01/04/18 08:20 Isosorbide Mononitrate (Imdur) 30 mg DAILY PO 01/04/18 09:00 01/04/18 08:10 Apixaban (Eliquis) 5 mg BID PO 01/03/18 21:00 01/04/18 08:11 Aspirin (Children'S Aspirin) 81 mg DAILY PO 01/04/18 09:00 01/04/18 08:11 Atorvastatin Calcium (Lipitor) 80 mg DAILY PO 01/04/18 09:00 01/04/18 08:10 Ciprofloxacin (Cipro) 500 mg BID66 PO 01/03/18 21:00 01/04/18 05:45 Clindamycin HCl (Cleocin) 300 mg TID PO 01/03/18 21:00 01/04/18 15:25 Docusate Sodium (Colace) 100 mg BID PO 01/03/18 21:00 01/04/18 08:12 EZETIMIBE (Zetia) 10 mg DAILY PO 01/04/18 09:00 01/04/18 08:12 Furosemide (Lasix) 40 mg DAILY PO 01/04/18 09:00 01/04/18 08:11 Insulin Human Lispro (HumaLOG) 5 units [id number] SQ 01/04/18 08:00 01/04/18 08:21 Lisinopril (Prinivil) 40 mg DAILY PO 01/04/18 09:00 01/04/18 08:10 Meclizine HCl (Antivert) 25 mg PRN BID PRN PO DIZZINESS 01/03/18 21:00 Metoprolol Tartrate (Lopressor) 50 mg BID PO 01/03/18 21:00 01/04/18 08:11 Non-Formulary Medication (Mometasone/ Formoterol (Dulera 200 Mcg/5 Mcg Inhaler)) 2 puff BID IH 01/03/18 21:00 UNV Famotidine (Pepcid) 20 mg BID PO 01/03/18 21:00 01/04/18 08:11 Albuterol Sulfate (Ventolin) 2.5 mg RTQID NEB 01/04/18 08:00 01/04/18 15:38 Budesonide (Pulmicort) 0.5 mg RTBID NEB 01/04/18 08:00 01/04/18 09:32 Lactobacillus Rhamnosus (Culturelle) 1 cap BID PO 01/03/18 21:00 01/04/18 08:10 Albuterol/ Ipratropium (Duoneb) 3 ml STK-MED ONCE .ROUTE 01/04/18 05:33 01/04/18 05:34 DC Albuterol Sulfate (Ventolin) 2.5 mg STK-MED ONCE .ROUTE 01/04/18 05:48 01/04/18 05:49 DC I & O 01/04/18 00:00 Intake Total 950 ml Balance 950 ml Orders Procedure Category Date Status Time Ceftriaxone Sodium PHA 01/03/18 Complete (Rocephin) 16:00 Iv Normal Saline 50ml PHA 01/03/18 Complete (Iv Sodium Chlorid 16:24 Ceftriaxone Sodium PHA 01/03/18 Complete (Rocephin) 16:24 Admit Orders ADT 01/03/18 Transmitted Admission Screening CONS 01/03/18 Transmitted 18:39 Case Management CM1 01/04/18 Transmitted Referral 07:00 Mrsa, Pcr LAB 01/03/18 In Process 18:39 Code Status CODE 01/03/18 Transmitted 19:04 Qatari Diabetic DIET 01/04/18 Transmitted Assoc Diet Breakfast Acetaminophen PHA 01/03/18 In Process (Tylenol) 20:30 Calcium Carb/Vit D3 PHA 01/04/18 In Process 500/200 (Oscal D 500 09:00 Insulin Glargine PHA 01/04/18 In Process (Lantus) 09:00 Isosorbide PHA 01/04/18 In Process Mononitrate Er (Imdur) 09:00 Apixaban (Eliquis) PHA 01/03/18 In Process 21:00 Aspirin (Children's PHA 01/04/18 In Process Aspirin) 09:00 Atorvastatin Calcium PHA 01/04/18 In Process (Lipitor) 09:00 Ciprofloxacin Hcl PHA 01/03/18 In Process (Cipro) 21:00 Clindamycin Hcl PHA 01/03/18 In Process (Cleocin) 21:00 Docusate Sodium PHA 01/03/18 In Process (Colace) 21:00 Ezetimibe (Zetia) PHA 01/04/18 In Process 09:00 Furosemide Tablet PHA 01/04/18 In Process (Lasix) 09:00 Insulin Lispro PHA 01/04/18 In Process (Humalog) 08:00 Lisinopril (Prinivil) PHA 01/04/18 In Process 09:00 Meclizine (Antivert) PHA 01/03/18 In Process 21:00 Metoprolol Tart Immed PHA 01/03/18 In Process Release (Lopressor 21:00 Famotidine (Pepcid) PHA 01/03/18 In Process 21:00 Cbc W Autodiff LAB 01/04/18 Complete 05:00 Basic Metabolic Panel LAB 01/04/18 Complete 05:00 Albuterol Sulfate PHA 01/04/18 In Process (Ventolin) 08:00 Airway Inhalation RT 01/03/18 Complete Treatment 20:56 Budesonide (Pulmicort) PHA 01/04/18 In Process 08:00 Airway Inhalation RT 01/03/18 Complete Treatment 20:56 Lactobacillus PHA 01/03/18 In Process Rhamnosus Gg 21:00 Ipratrpium/Albuterol PHA 01/04/18 Complete 0.5/2.5mg (Duoneb) 05:33 Albuterol Sulfate PHA 01/04/18 Complete (Ventolin) 05:48 Isolation OTHER 01/04/18 Transmitted 08:35 Airway Inhalation RT 01/04/18 Complete Treatment Vital Signs Date Time Temp Pulse Resp B/P (MAP) Pulse Ox O2 Delivery O2 Flow Rate FiO2 01/04/18 14:46 98.9 69 20 176/61 (99) 95 Room Air CHLOE ESPINOZA DO Jan 04, 2018 15:47
[2018-01-04] MEDS ORDERED: CEFP200T PO (15:49)
--- NOTE | 2018-01-04 17:34 | NUR ---
NSG NOTE; DISCHARGE VERBAL AND WRITTEN DISCHARGE INSTRUCTIONS GIVEN TO PT WITH VERBAL UNDERSTANDING RX CALLED TO [facility] DISCHARGE TO [facility] AT 1730 VIA AMB ACCOMP BY TRANSPORT PERSONNEL
== END 2018-01-04 17:30 | disposition home or self-care (01) | DRG 690 ==
LOC: ER 13:15 → 1 SOUTH 16:40
PROVIDERS: ADMIT Neuromusculoskeletal Medicine & OMM; ATTEND Neuromusculoskeletal Medicine & OMM
DX: N39.0 Urinary tract infection, site not specified (principal); L03.90 Cellulitis, unspecified; I11.0 Hypertensive heart disease with heart failure; I48.91 Unspecified atrial fibrillation; I50.9 Heart failure, unspecified; J44.9 Chronic obstructive pulmonary disease, unspecified; Z95.1 Presence of aortocoronary bypass graft; Z79.899 Other long term (current) drug therapy; Z88.0 Allergy status to penicillin
CPT/HCPCS: 36415; 71045; 80048; 80053; 81001; 82947; 84484; 85007; 85025; 87086; 87186; 87641; 94640; 96361; 96365; J0696; J1815; J7040; J7613; J7626; 99285-25